=== PATIENT | female | born 1975 | race Caucasian/White ===

== ENCOUNTER 2016-07-19 17:07 | Emergency (ER) | payer OTHER ==
[2016-07-19] MEDS ORDERED: fentaNYL 100 MCG/2 ML INJ IVP ONE ×3 (17:34→18:41)
[2016-07-19] MEDS ORDERED: ONDANSETRON 4 MG/2 ML VIAL IVP ONE (17:34)
--- NOTE | 2016-07-19 17:47 | EDPHY ---
H & P Stated Complaint: chronic back issues with fall 2 weeks ago/now with WEAKNESS/ INCONTINENCE HPI/ROS: CHIEF COMPLAINT: Low back pain, weakness, fecal incontinence, abdominal pain HISTORY OF PRESENT ILLNESS: Patient complains of low back pain. This is related to a fall from 2 weeks ago. She slipped carrying her child, landing on her right hip and back. She has complained of progressive pain in the low back , radiating pain down both legs, saddle anesthesia, fecal incontinence. She reports that the pain is 10/10. She reports there has been some weakness in the right lower extremity today. She also reports that she has decreased sensation in the saddle. She reports having difficulty press on the gas pedal earlier today while driving. She has had no fever or chills. She has had no chest or upper back pain. Does associate this with some abdominal pelvic pain. No trauma directly to the abdomen. No hematuria. She reports a history of cauda equina nearly 3 years ago with surgical intervention at [facility] by Dr. Youssef. Her established neurosurgeon is Dr. Franco. She also has secondary complaint of abdominal pain. This is [id number]. Nonspecific in nature. No vomiting but some nausea. Worse with palpation and movement. Does not radiate. REVIEW OF SYSTEMS: Ten systems reviewed and are negative unless otherwise noted in the HPI PERTINENT MEDICAL HISTORY: Chronic low back pain, previous cauda equina EXAMINATION General Appearance: Alert, no distress Head: normocephalic, atraumatic Eyes: Pupils equal and round, no conjunctival pallor or injection. EOMs intact ENT, Mouth: Mucous membranes moist. Uvula midline. Neck: Normal inspection, supple, non-tender Respiratory: Lungs are clear to auscultation. No wheezing, rhonchi or crackles. Cardiovascular: Regular rate and rhythm. No murmur. Pulses intact distally. Gastrointestinal: Abdomen is soft and obese. There is mild tenderness throughout. No tympany. No rigidity. No CVA tenderness. Nonacute abdomen. Back: Moderate to severe lumbar tenderness throughout. There is no crepitus, step-off or deformity. No tenderness of the cervical spine. No tenderness of the thoracic spine. Range of motion unable to fully test due to pain. Neurological: A&O x4. GCS 15. Cranial nerves 2-12 grossly intact. Strength of the upper extremities is 5/5. Strength in the lower extremities is 4/5 in the right knee and ankle, and 5/5 in the left knee and ankle. Patellar reflex on the right is 2+. There is hyperreflexia of the left patellar reflexes 3+. No foot drop. Skin: Warm and dry. Multiple areas of excoriation throughout the arms and legs. Extremities: Mild tenderness of the right trochanter and hip. Range of motion of the right hip is intact but painful. There is no point tenderness of the remainder of the lower extremities. Range of motion is symmetric in the knees, hips and ankles. Psychiatric: Mood and affect normal DIFFERENTIAL DIAGNOSES: Including but not limited to acute cord compression, cauda equina, lumbar radiculopathy, disc herniation, muscular strain, low back sprain MDM: 5:35 p.m. Low back pain with trauma 2 weeks ago. Her pain is severe radiating down both legs, right greater than left. She reports weakness of the ankle on the right leg today. She reports fecal incontinence x2 today. She also complains of some abdominal pelvic pain. No urinary incontinence. Some saddle anesthesia reported. Examination does reveal mild hyperreflexia on the left knee as well as some weakness on the right ankle. MRI of the lumbar spine has been ordered without contrast 6:28 p.m. Laboratory studies are all within normal limits. X-ray of the hip is unremarkable for fracture or degenerative changes. MRI is pending. 8:00 p.m. Notified by radiologist Dr. Antonio Salinas. MRI of the lumbar spine does not reveal any acute findings. There are chronic changes as noted, and these are unchanged from January 2016. I have informed the patient of this. She informs me that her incontinence actually has been chronic since her previous cauda equina. She also feels that some of her sensory changes may be is well after she "thinks about it more." Her pain has improved but not resolved. She has ample pain medication at home from her painter helper sign. I do feel she is stable for discharge home. She is established with Dr. Franco neurosurgeon. She will follow up with him or his PA this week as she already has an appointment with them. She is comfortable with being discharged home at this time. She is discharged in stable condition. SUPERVISION: This patient was independently evaluated without direct examination by the attending physician. Case was discussed with attending physician. Source: Patient, Family Exam Limitations: No limitations - Personal History LMP (Females 10-55): Hysterectomy Current Tetanus/Diphtheria Vaccine: Yes Tetanus Vaccine Date: 2013 - Medical/Surgical History Hx Asthma: No Hx Chronic Respiratory Disease: No Hx Diabetes: No Hx Cardiac Disease: No Hx Renal Disease: No Hx Cirrhosis: No Hx Alcoholism: No Hx HIV/AIDS: No Hx Splenectomy or Spleen Trauma: No Other PMH: Cauda equina syndrome, hysterectomy, bowel bladder rectal prolapse repair, appy, tonsillectomy, , anxiety, migraines. - Social History Smoking Status: Current some day smoker Constitutional: Initial Vital Signs Temperature (C) 98.2 F 07/19/16 17:18 Heart Rate 97 07/19/16 17:18 Respiratory Rate 16 07/19/16 17:18 Blood Pressure 149/98 H 07/19/16 17:18 O2 Sat (%) 96 07/19/16 17:18 O2 Delivery Mode Room Air Allergies/Adverse Reactions: Sulfa (Sulfonamide Antibiotics) Allergy (Severe, Verified 07/19/16 17:17) Other-Enter Comments codeine Allergy (Intermediate, Verified 07/19/16 17:17) Rash morphine Allergy (Intermediate, Verified 07/19/16 17:17) Rash Home Medications: Medication Instructions Recorded Lexapro 02/14/16 Oxycodone HCl/Acetaminophen 02/14/16 Seroquel 02/14/16 methylPREDNISolone [Medrol Dose 1 each PO AD #1 ea 02/14/16 Philip] Valium 07/19/16 Medical Decision Making - Diagnostics Imaging Results: Imaging Impressions Hip X-Ray 07/19/16 17:47 Impression: 1. No evidence of right hip fracture or dislocation. 2. No significant degenerative changes. - Data Points Laboratory Results: Laboratory Results 07/19/16 17:45 07/19/16 17:45 07/19/16 07/19/16 07/19/16 18:45 17:45 17:45 WBC 5.95 10^3/uL 10^3/uL (3.80-9.50) RBC 5.09 10^6/uL 10^6/uL (4.18-5.33) Hgb 13.8 g/dL g/dL (12.6-16.3) Hct 43.1 % % (38.0-47.0) MCV 84.7 fL fL (81.5-99.8) MCH 27.1 pg L pg (27.9-34.1) MCHC 32.0 g/dL L g/dL (32.4-36.7) RDW 12.8 % % (11.5-15.2) Plt Count 198 10^3/uL 10^3/uL (150-400) MPV 9.2 fL fL (8.7-11.7) Neut % (Auto) 52.1 % % (39.3-74.2) Lymph % (Auto) 41.0 % % (15.0-45.0) [place] % (Auto) 6.7 % % (4.5-13.0) Eos % (Auto) 0.0 % L % (0.6-7.6) Baso % (Auto) 0.0 % L % (0.3-1.7) Nucleat RBC Rel Count 0.0 % % (0.0-0.2) Absolute Neuts (auto) 3.10 10^3/uL 10^3/uL (1.70-6.50) Absolute Lymphs (auto) 2.44 10^3/uL 10^3/uL (1.00-3.00) Absolute Monos (auto) 0.40 10^3/uL 10^3/uL (0.30-0.80) Absolute Eos (auto) 0.00 10^3/uL L 10^3/uL (0.03-0.40) Absolute Basos (auto) 0.00 10^3/uL L 10^3/uL (0.02-0.10) Absolute Nucleated RBC 0.00 10^3/uL 10^3/uL (0-0.01) Immature Gran % 0.2 % % (0.0-1.1) Immature Gran # 0.01 10^3/uL 10^3/uL (0.00-0.10) PT 12.3 SEC SEC (12.0-15.0) INR 0.92 (0.83-1.16) APTT 25.0 SEC SEC (23.0-38.0) Sodium Potassium Chloride Carbon Dioxide Anion Gap BUN Creatinine Estimated GFR Glucose Calcium Lipase Urine Color YELLOW Urine Appearance CLEAR Urine pH 5.0 (5.0-7.5) Ur Specific [place] 1.012 (1.002-1.030) Urine Protein NEGATIVE (NEGATIVE) Urine Ketones NEGATIVE (NEGATIVE) Urine Blood NEGATIVE (NEGATIVE) Urine Nitrate NEGATIVE (NEGATIVE) Urine Bilirubin NEGATIVE (NEGATIVE) Urine Urobilinogen NEGATIVE EU EU (0.2-1.0) Ur Leukocyte Esterase NEGATIVE (NEGATIVE) Ur Culture Indicated? NOT INDICATED (NI) Urine Glucose NEGATIVE (NEGATIVE) Urine Opiates Screen NON-NEGATIVE H (NEGATIVE) Urine Barbiturates NEGATIVE (NEGATIVE) Ur Phencyclidine Scrn NEGATIVE (NEGATIVE) Ur Amphetamine Screen NEGATIVE (NEGATIVE) U Benzodiazepines Scrn NON-NEGATIVE H (NEGATIVE) Urine Cocaine Screen NEGATIVE (NEGATIVE) U Marijuana (THC) Screen NEGATIVE (NEGATIVE) 07/19/16 17:45 WBC RBC Hgb Hct MCV MCH MCHC RDW Plt Count MPV Neut % (Auto) Lymph % (Auto) [place] % (Auto) Eos % (Auto) Baso % (Auto) Nucleat RBC Rel Count Absolute Neuts (auto) Absolute Lymphs (auto) Absolute Monos (auto) Absolute Eos (auto) Absolute Basos (auto) Absolute Nucleated RBC Immature Gran % Immature Gran # PT INR APTT Sodium 136 mEq/L mEq/L (134-144) Potassium 3.7 mEq/L mEq/L (3.5-5.2) Chloride 104 mEq/L mEq/L (97-110) Carbon Dioxide 23 mEq/l mEq/l (22-31) Anion Gap 9 mEq/L mEq/L (8-16) BUN 7 mg/dL mg/dL (7-23) Creatinine 0.6 mg/dL mg/dL (0.6-1.0) Estimated GFR > 60 Glucose 92 mg/dL mg/dL (70-100) Calcium 8.7 mg/dL mg/dL (8.5-10.4) Lipase 68.0 IU/L IU/L (23-300) Urine Color Urine Appearance Urine pH Ur Specific [place] Urine Protein Urine Ketones Urine Blood Urine Nitrate Urine Bilirubin Urine Urobilinogen Ur Leukocyte Esterase Ur Culture Indicated? Urine Glucose Urine Opiates Screen Urine Barbiturates Ur Phencyclidine Scrn Ur Amphetamine Screen U Benzodiazepines Scrn Urine Cocaine Screen U Marijuana (THC) Screen Medications Given: Discontinued Medications Diphenhydramine HCl (Benadryl) 25 mg PO EDNOW ONE Stop: 07/19/16 18:42 Last Admin: 04/20/17 18:55 Dose: 25 mg Fentanyl (Sublimaze) 100 mcg IVP EDNOW ONE Stop: 07/19/16 17:35 Last Admin: 07/19/16 18:03 Dose: 100 mcg Ondansetron HCl (Zofran) 4 mg IVP EDNOW ONE Stop: 07/19/16 17:35 Last Admin: 07/19/16 18:03 Dose: 4 mg Departure - Departure Disposition: Home, Routine, Self-Care Clinical Impression: Lumbar radicular pain Chronic pain Qualifiers: Chronic pain type: other chronic pain Qualified Code(s): G89.29 - Other chronic pain Condition: Good Instructions: Lumbar Radiculopathy (ED), Lower Back Exercises (ED) Additional Instructions: Continue your previous see prescribed pain medications as needed. Follow up with her established neurosurgeon Dr. Maharaj. Follow up with her established pain management physician. Return to ER for any change or worsening in her symptoms. Referrals: Isabel Garrido MD [Primary Care Provider] - As per Instructions Caleb Franco MD [Medical Doctor] - As per Instructions
[2016-07-19 17:55] LABS: % IMMATURE GRANULYOCYTES 0.2 % (0.0-1.1); ABSOLUTE IMMATURE GRANULOCYTES 0.01 10^3/uL (0.00-0.10); ADD DIFF? NO; ADD MORPH? NO; ADD SCAN? NO; ATYPICAL LYMPHOCYTE FLAG 30 (0-99); FRAGMENT RBC FLAG 0 (0-99); HEMATOCRIT 43.1 % (38.0-47.0); HEMOGLOBIN 13.8 g/dL (12.6-16.3); LEFT SHIFT FLG 0 (0-99); LIPEMIA HEMOLYSIS FLAG 80 (0-99); MEAN CELL HEMOGLOBIN 27.1 pg (27.9-34.1); MEAN CELL VOLUME 84.7 fL (81.5-99.8); MEAN PLATELET VOLUME 9.2 fL (8.7-11.7); PLATELET CLUMPS FLAG 10 (0-99); PLATELET COUNT 198 10^3/uL (150-400); RED BLOOD CELL COUNT 5.09 10^6/uL (4.18-5.33); RED CELL DISTRIBUTION WIDTH 12.8 % (11.5-15.2)
[2016-07-19 18:06] LABS: INR 0.92 (0.83-1.16); PROTIME(PATIENT) 12.3 SEC (12.0-15.0)
[2016-07-19 18:09] LABS: ANION GAP 9 mEq/L (8-16); CALCIUM 8.7 mg/dL (8.5-10.4); CARBON DIOXIDE 23 mEq/l (22-31); CHLORIDE 104 mEq/L (97-110); CREATININE 0.6 mg/dL (0.6-1.0); GLOMERULAR FILTRATION RATE > 60; GLUCOSE 92 mg/dL (70-100); POTASSIUM 3.7 mEq/L (3.5-5.2); SODIUM 136 mEq/L (134-144)
[2016-07-19] MEDS ORDERED: diphenhydrAMINE 25 MG CAP PO ONE (18:41)
[2016-07-19 19:03] LABS: COLOR YELLOW; LEUKOCYTE ESTERASE,URINE NEGATIVE (NEGATIVE); NITRITE,URINE NEGATIVE (NEGATIVE)
[2016-07-19 20:20] VITALS: BP 127/91; PULSE 104; RESP 14; TEMP 99.3; O2SAT 95
== END 2016-07-19 20:45 | disposition home or self-care (01) ==
DX: M54.5 Low back pain (principal); G89.29 Other chronic pain; F17.200 Nicotine dependence, unspecified, uncomplicated
CPT/HCPCS: 80305; 96374; J2405; J3010

== ENCOUNTER 2017-07-24 18:20 | Inpatient (IN) | payer OTHER ==
--- NOTE | 2017-07-24 19:01 | EDPHY ---
H & P Stated Complaint: HX CAUDA EQUINA/RE INJURED SATURDAY/NEW NEURO DEFICITS/ INCONTINENCE AND URINA Time Seen by Provider: 07/24/17 18:51 HPI/ROS: HPI: This is a 41-year-old female who presents with Chief Complaint: HX CAUDA EQUINA/RE INJURED SATURDAY/NEW NEURO DEFICITS/ INCONTINENCE AND URINE Location: Lower back Quality: Pain and weakness Duration: Today Signs and Symptoms: No bleeding, + radiation, + numbness, + weakness, no tingling, + fecal incontinence, + decreased range of motion, no swelling, + pain , no fever, + urinary retention Timing: Acute on chronic Severity: 10 out of 10 Context: Patient has a history of cauda equina syndrome, chronic back issues, presents with complaints of 1 day history of rapidly worsening lower back pain radiating down the front of both of her legs accompanied by numbness in the front of both of her thigh, fecal incontinence and urinary retention. Patient reports that she was unable to get out of the car to take her child to soccer practice this afternoon and fell to the ground. She reports no trauma directly to the abdomen. Denies hematuria. Describes the numbness radiating from her lower back down both of her thighs into the front of her thighs. Denies LOC/ head injury/neck pain/dizziness/nausea/vomiting/amnesia. Pain is worse with palpation and movement. She is established with Dr. Franco Neurosurgery. She reports that she has numerous pain medications that are not covering her pain and she believes that they should be and this concerns her. Patient believes that the pain is above her prior L4-L5 S1 surgery as well as below. Reports that her pain is improved with her knees flexed at 90 or her lying in a supine position. After further questioning patient reports that she has incontinence since her previous cauda equina syndrome episode. Modifying Factors: Regular pain medication regimen, no relief Comment: ROS: see HPI Constitutional: No fever, no chills, no weight loss Eyes: No blurred vision Respiratory: No shortness of breath, no cough Cardiovascular: No chest pain Gastrointestinal: No nausea, no vomiting no diarrhea Genitourinary: No dysuria Extremities: No myalgias Neurologic: No weakness, no numbness Skin: No rashes Hematologic: No bruising, no bleeding MEDICAL/SURGICAL/SOCIAL HISTORY: Medical history: Cut equina syndrome, anxiety, migraine Surgical history: Hysterectomy, bowel bladder rectal prolapse repair, appendectomy, tonsillectomy, Social history:. Has a child CONSTITUTIONAL: Obese, anxious, middle-aged white female, extremely tearful, awake and alert, moderate distress HEENT: Atraumatic and normocephalic. NECK: supple, no midline tenderness, flexion 45 degrees, extension 45 degrees, right and left lateral flexion 45 degrees. No meningismus. Cardiovascular: Normal S1/S2, regular rate, regular rhythm, without murmur rub or gallop. PULMONARY/CHEST: Symmetrical and nontender. no crepitus. Clear to auscultation bilaterally. Good air movement. No accessory muscle usage. ABDOMEN: Soft, nondistended, nontender, no ecchymosis. PELVIC: no pain with rocking; bilateral hips flexion 125 degrees, extension 30 degrees, with no pain internal rotation and no pain external rotation. BACK: Moderate midline tenderness, no paraspinous spasm, deep tendon reflexes 2 /2, unable to perform straight leg raise, No foot drop. Achilles reflexes are equal bilaterally. Diminished sensation noted from knees to hips bilaterally. RECTAL: Fair sphincter tone, light yellow stool in vault, no external hemorrhoids, no fissures, no palpable masses EXTREMITIES: 2/2 pulses, strength 5/5, DIP/PIP/MCP flexion/extension intact with good light touch sensation. no deformities, no clubbing, no cyanosis or edema. NEUROLOGICAL: no focal neuro deficits. GCS 15. Light touch sensation intact. SKIN: Warm and dry, no erythema. no rash. Good capillary refill. Source: Patient Exam Limitations: No limitations - Personal History LMP (Females 10-55): Hysterectomy Current Tetanus Diphtheria and Acellular Pertussis (TDAP): Yes Tetanus Vaccine Date: 2013 - Medical/Surgical History Hx Asthma: No Hx Chronic Respiratory Disease: No Hx Diabetes: No Hx Cardiac Disease: No Hx Renal Disease: No Hx Cirrhosis: No Hx Alcoholism: No Hx HIV/AIDS: No Hx Splenectomy or Spleen Trauma: No Other PMH: Cauda equina syndrome, hysterectomy, bowel bladder rectal prolapse repair, appy, tonsillectomy, , anxiety, migraines. - Social History Smoking Status: Current some day smoker Constitutional: Initial Vital Signs Temperature (C) 36.7 C 07/24/17 18:35 Heart Rate 96 07/24/17 18:35 Respiratory Rate 16 07/24/17 18:35 Blood Pressure 112/78 07/24/17 18:35 O2 Sat (%) 97 07/24/17 18:35 O2 Delivery Mode Room Air Allergies/Adverse Reactions: Sulfa (Sulfonamide Antibiotics) Allergy (Severe, Verified 07/24/17 18:34) Other-Enter Comments codeine Allergy (Intermediate, Verified 07/24/17 18:34) Rash morphine Allergy (Intermediate, Verified 07/24/17 18:34) Rash Home Medications: Medication Instructions Recorded Lexapro 02/14/16 Seroquel 02/14/16 Valium 07/19/16 Clindamycin 07/24/17 Dilaudid 07/24/17 morphINE 07/24/17 Medical Decision Making - Diagnostics Imaging Results: Imaging Impressions Lumbar Spine MRI 07/24/17 19:12 Impression: Prior L4-L5 and L5-S1 posterior decompression. Small subligamentous central disk protrusion at L4-L5, new. No dominant disk herniation or neural impingement identified. Results called to Shirin Aldridge PA-C, at 9:30 p.m. ED Course/Re-evaluation: MRI lumbar spine ordered, IV medications 0: IV Dilaudid 2 mg and IV Zofran ordered. 0: Notified by nursing that patient states that Zofran does not work for her and she is requesting Reglan with Benadryl. Notified by Radiology that there is prior L4-L5 S1 surgery. Small L4-L5 central disc herniation that is new. No signs of cauda equina syndrome. Foramen look good. 2139: Reassessed patient who reports that she still has pain. Weakness has improved slightly. Requesting more pain medications and IV fluids prior to decision being made for her to be admitted for intractable pain versus going home and outpatient therapy. Given 1 L normal saline, IV Dilaudid 2 mg, IV Valium 5 mg 9: Reassessed patient reports that pain has improved she still does not feel comfortable going home. She is not able to do hip bends and move her lower extremities with greater movement. ED decision to consult hospitalist for admission for intractable lower back pain secondary to disc herniation. Spoke with Dr. Bateman who kindly agrees to admit patient for pain control. Spoke with Dr. Fraire who kindly agrees to consult on the patient. This patient was seen under the supervision of my secondary supervising physician. I evaluated care for this patient independently. Discussed this patient with Dr. Mayo who did not see the patient. Differential Diagnosis: Back pain including but not limited to muscular pain, herniated disc, spine fracture, intra-abdominal causes and urinary tract infection. - Data Points Laboratory Results: Laboratory Results 07/24/17 20:11 07/24/17 20:11 07/24/17 07/24/17 20:11 20:11 WBC 8.38 10^3/uL 10^3/uL (3.80-9.50) RBC 5.30 10^6/uL 10^6/uL (4.18-5.33) Hgb 14.5 g/dL g/dL (12.6-16.3) Hct 43.5 % % (38.0-47.0) MCV 82.1 fL fL (81.5-99.8) MCH 27.4 pg L pg (27.9-34.1) MCHC 33.3 g/dL g/dL (32.4-36.7) RDW 12.9 % % (11.5-15.2) Plt Count 281 10^3/uL 10^3/uL (150-400) MPV 8.7 fL fL (8.7-11.7) Neut % (Auto) 63.1 % % (39.3-74.2) Lymph % (Auto) 31.9 % % (15.0-45.0) [place] % (Auto) 4.7 % % (4.5-13.0) Eos % (Auto) 0.0 % L % (0.6-7.6) Baso % (Auto) 0.1 % L % (0.3-1.7) Nucleat RBC Rel Count 0.0 % % (0.0-0.2) Absolute Neuts (auto) 5.29 10^3/uL 10^3/uL (1.70-6.50) Absolute Lymphs (auto) 2.67 10^3/uL 10^3/uL (1.00-3.00) Absolute Monos (auto) 0.39 10^3/uL 10^3/uL (0.30-0.80) Absolute Eos (auto) 0.00 10^3/uL L 10^3/uL (0.03-0.40) Absolute Basos (auto) 0.01 10^3/uL L 10^3/uL (0.02-0.10) Absolute Nucleated RBC 0.00 10^3/uL 10^3/uL (0-0.01) Immature Gran % 0.2 % % (0.0-1.1) Immature Gran # 0.02 10^3/uL 10^3/uL (0.00-0.10) Sodium 141 mEq/L mEq/L (135-145) Potassium 3.9 mEq/L mEq/L (3.5-5.2) Chloride 105 mEq/L mEq/L (97-110) Carbon Dioxide 22 mEq/l mEq/l (22-31) Anion Gap 14 mEq/L mEq/L (8-16) BUN 11 mg/dL mg/dL (7-23) Creatinine 0.7 mg/dL mg/dL (0.6-1.0) Estimated GFR > 60 Glucose 89 mg/dL mg/dL (70-100) Calcium 9.7 mg/dL mg/dL (8.5-10.4) Medications Given: Discontinued Medications Diazepam (Valium) 5 mg IVP EDNOW ONE Stop: 07/24/17 21:40 Last Admin: 07/24/17 21:49 Dose: 5 mg Diphenhydramine HCl (Benadryl Injection) 25 mg IVP EDNOW ONE Stop: 07/24/17 19:43 Last Admin: 07/24/17 21:39 Dose: Not Given Hydromorphone HCl (Dilaudid) 2 mg IVP EDNOW ONE Stop: 07/24/17 19:14 Last Admin: 07/24/17 20:21 Dose: 2 mg Hydromorphone HCl (Dilaudid) 2 mg IVP EDNOW ONE Stop: 07/24/17 21:40 Last Admin: 07/24/17 21:52 Dose: 2 mg Sodium Chloride (Ns) 1,000 mls @ 0 mls/hr IV EDNOW ONE; Wide Open PRN Reason: Protocol Stop: 07/24/17 21:40 Last Admin: 07/24/17 21:49 Dose: 1,000 mls Metoclopramide HCl (Reglan Injection) 10 mg IVP EDNOW ONE Stop: 07/24/17 19:43 Last Admin: 07/24/17 20:21 Dose: 10 mg Ondansetron HCl (Zofran) 4 mg IVP EDNOW ONE Stop: 07/24/17 19:14 Last Admin: 07/24/17 21:39 Dose: Not Given Departure - Departure Disposition: [facility] In[facility] Acute Clinical Impression: Herniation of intervertebral disc between L4 and L5, Acute exacerbation of chronic low back pain, Intractable neuropathic pain of lumbosacral origin Condition: Fair
[2017-07-24] MEDS ORDERED: ONDANSETRON 4 MG/2 ML VIAL IVP ONE (19:13)
[2017-07-24] MEDS ORDERED: HYDROmorphONE/DILAUDID 2 MG/ML INJ IVP ONE ×2 (19:13→21:39)
[2017-07-24] MEDS ORDERED: METOCLOPRAMIDE 10 MG/2 ML VIAL ONE (19:41)
[2017-07-24] MEDS ORDERED: METOCLOPRAMIDE 10 MG/2 ML VIAL IVP ONE (19:42)
[2017-07-24 20:18] LABS: PLATELET COUNT 281 10^3/uL (150-400)
[2017-07-24] MEDS ORDERED: NS 1,000 ML IV ONE (21:39)
[2017-07-24] MEDS ORDERED: DIAZEPAM 5 MG/ML 1 ML SYR IVP ONE (21:39)
[2017-07-24] MEDS ORDERED: ONDANSETRON 4 MG/2 ML VIAL IVP PRN (23:25)
[2017-07-24] MEDS ORDERED: ACETAMINOPHEN 325 MG TAB PO PRN (23:25)
[2017-07-25] MEDS: HYDROmorphONE/DILAUDID 2 MG TAB PO PRN ×3 (01:24→07:59)
[2017-07-25] MEDS: ONDANSETRON DISINTEGRATING 4 MG TAB PO PRN (01:25)
[2017-07-25] MEDS: HYDROmorphone HCL/NS 0.5 MG/ML SYR IVP PRN ×8 (02:52→23:08)
--- NOTE | 2017-07-25 03:50 | PDGENHP ---
History and Physical - Chief Complaint Back pain - History of Present Illness 41 yo F w/ hx of chronic back pain and previous back surgery presents with pain after a fall. Patient fell on Saturday and has severe back pain since. She describes the pain as mostly left-sided with radiation down the left leg. She also complains of left foot weakness, numbness, as well as urinary retention and loss of bowel continence on at least 1 occasion. MRI in the ED revealed new , small L4-5 disk protrusion as well as previous, stable abnormalities. Patient' s pain was not able to be controlled in ED so she is being admitted for pain control. History Information - Allergies/Home Medication List Allergies/Adverse Reactions: Sulfa (Sulfonamide Antibiotics) Allergy (Severe, Verified 07/24/17 18:34) Other-Enter Comments codeine Allergy (Intermediate, Verified 07/24/17 18:34) Rash morphine Allergy (Intermediate, Verified 07/24/17 18:34) Rash Home Medications: Lexapro 02/14/16 [Last Taken Unknown] Seroquel 02/14/16 [Last Taken Unknown] Valium 07/19/16 [Last Taken Unknown] Clindamycin 07/24/17 [Last Taken Unknown] Dilaudid 07/24/17 [Last Taken Unknown] morphINE 07/24/17 [Last Taken Unknown] I have personally reviewed and updated: family history, medical history - Past Medical History arthritis Additional medical history: Chronic pain - Surgical History Reports: spinal surgery - Family History Positive for: cancer - Social History Smoking Status: Current some day smoker Review of Systems Review of Systems: ROS: 10pt was reviewed & negative except for what was stated in HPI & below Physical Exam Physical Exam: Temp Pulse Resp BP Pulse Ox 37.1 C 86 19 114/71 95 07/25/17 01:18 07/25/17 01:18 07/25/17 01:18 07/25/17 01:18 07/25/17 01:18 Constitutional: appears nourished, uncomfortable Eyes: PERRL, EOMI Ears, Nose, Mouth, Throat: moist mucous membranes, no oral mucosal ulcers Cardiovascular: regular rate and rhythym, no murmur, rub, or gallop Respiratory: no respiratory distress, no rales or rhonchi Gastrointestinal: normoactive bowel sounds, soft, non-tender abdomen Skin: warm, normal color Musculoskeletal: other (Plantarflexion 4/5 left foot) Neurologic: AAOx3, CN II-XII Intact, other (L foot plantarflexion 4/5, reports mild numbness) Psychiatric: interacting appropriately, anxious Lab Data & Imaging Review 07/24/17 20:11 07/24/17 20:11 WBC 8.38 10^3/uL (3.80-9.50) 07/24/17 20:11 RBC 5.30 10^6/uL (4.18-5.33) 07/24/17 20:11 Hgb 14.5 g/dL (12.6-16.3) 07/24/17 20:11 Hct 43.5 % (38.0-47.0) 07/24/17 20:11 MCV 82.1 fL (81.5-99.8) 07/24/17 20:11 MCH 27.4 pg (27.9-34.1) L 07/24/17 20:11 MCHC 33.3 g/dL (32.4-36.7) 07/24/17 20:11 RDW 12.9 % (11.5-15.2) 07/24/17 20:11 Plt Count 281 10^3/uL (150-400) 07/24/17 20:11 MPV 8.7 fL (8.7-11.7) 07/24/17 20:11 Neut % (Auto) 63.1 % (39.3-74.2) 07/24/17 20:11 Lymph % (Auto) 31.9 % (15.0-45.0) 07/24/17 20:11 Walton % (Auto) 4.7 % (4.5-13.0) 07/24/17 20:11 Eos % (Auto) 0.0 % (0.6-7.6) L 07/24/17 20:11 Baso % (Auto) 0.1 % (0.3-1.7) L 07/24/17 20:11 Nucleat RBC Rel Count 0.0 % (0.0-0.2) 07/24/17 20:11 Absolute Neuts (auto) 5.29 10^3/uL (1.70-6.50) 07/24/17 20:11 Absolute Lymphs (auto) 2.67 10^3/uL (1.00-3.00) 07/24/17 20:11 Absolute Monos (auto) 0.39 10^3/uL (0.30-0.80) 07/24/17 20:11 Absolute Eos (auto) 0.00 10^3/uL (0.03-0.40) L 07/24/17 20:11 Absolute Basos (auto) 0.01 10^3/uL (0.02-0.10) L 07/24/17 20:11 Absolute Nucleated RBC 0.00 10^3/uL (0-0.01) 07/24/17 20:11 Immature Gran % 0.2 % (0.0-1.1) 07/24/17 20:11 Immature Gran # 0.02 10^3/uL (0.00-0.10) 07/24/17 20:11 Sodium 141 mEq/L (135-145) 07/24/17 20:11 Potassium 3.9 mEq/L (3.5-5.2) 07/24/17 20:11 Chloride 105 mEq/L (97-110) 07/24/17 20:11 Carbon Dioxide 22 mEq/l (22-31) 07/24/17 20:11 Anion Gap 14 mEq/L (8-16) 07/24/17 20:11 BUN 11 mg/dL (7-23) 07/24/17 20:11 Creatinine 0.7 mg/dL (0.6-1.0) 07/24/17 20:11 Estimated GFR > 60 07/24/17 20:11 Glucose 89 mg/dL (70-100) 07/24/17 20:11 Calcium 9.7 mg/dL (8.5-10.4) 07/24/17 20:11 Imaging Review: Imaging Impressions Lumbar Spine MRI 07/24/17 19:12 Impression: Prior L4-L5 and L5-S1 posterior decompression. Small subligamentous central disk protrusion at L4-L5, new. No dominant disk herniation or neural impingement identified. Results called to Shirin Aldridge PA-C, at 9:30 p.m. Assessment & Plan Assessment: 41 yo F w/ chronic lower back pain presents with pain crisis after a fall. Plan: 1. Acute on chronic back pain - Exacerbated by a fall 2 days prior to admission ; MRI reveals new, small subligamentous central disk protrusion at L4-L5. Pain did not respond to conservative measures and usual pain regimen at home so she is being admitted for pain control. - Dilaudid PO/IV for pain control + Valium PRN for muscle spasms - Neurosurgery service consulted, appreciate assistance 2. Chronic pain - Patient takes MS Contin 15 mg BID as well as Dilaudid 4 mg PO QID at home. Pain is mostly in her lower back where she has had previous spinal surgery. Diet - Regular Code - Full Ppx - SCDs Dispo - Admit under observation status
[2017-07-25] MEDS ORDERED: NS 500 ML IV ONE (04:18)
[2017-07-25] MEDS ORDERED: PNEUMOCOCCAL 0.5ML VACCINE VIAL IM ONE (08:08)
--- NOTE | 2017-07-25 08:19 | GCON ---
[f rep st] CONSULTATION CHIEF COMPLAINT: Low back pain with bilateral lower extremity pain, left greater than right, that st arted this last Saturday. HISTORY OF PRESENT ILLNESS: The patient is a 41-year-old female with history of chronic back pain th at she is under pain management and gets injections with Dr. Lopez. She has had previous back surger ies in the past with Dr. Youssef, and had previous laminectomy for cauda equina. Her history is that s he fell on Saturday of this week, complained of some severe back pain since then. She describes pain m ostly on the left side but does have some right-sided symptoms that she describes in the lower back t hat radiates to the anterior thighs bilaterally. She does not have any symptoms that radiate below t he knees. She complains of some left foot weakness and numbness as well as some urinary retention an d loss of bowel control. She had this at least on 1 occasion. She has not been incontinent since he r admission here to the hospital. She had a MRI in the emergency department after she was referred t here that showed a small L4-5 disk protrusion, but otherwise stable. There are postoperative changes noted. Pain was not able to be controlled in the ED, so she was admitted for pain control. She was admitted to the internal medicine service and we were consulted. She denies any current bowel or bl adder issues. She denies any numbness in her groin. No saddle numbness. PAST MEDICAL HISTORY: Chronic pain. PAST SURGICAL HISTORY: 1. Lumbar decompression with Dr. Youssef 3-1/2 years ago. 2. Bowel and bladder surgery. 3. . 4. Oophorectomy and hysterectomy. 5. Tonsils and adenoids. 6. Appendectomy. MEDICATIONS: Lexapro, Seroquel, Valium, clindamycin, Dilaudid, and morphine. ALLERGIES: To sulfa, codeine, and morphine derivative, although patient is on morphine at home. FAMILY HISTORY: Reviewed and noncontributory. SOCIAL HISTORY: The patient is . Lives in [facility]. Does have children. She does no t work. REVIEW OF SYSTEMS: Complete 10-point review of system as noted above and otherwise negative. The pa tient denies any headache. No diplopia. No blurred vision. No loss of visual field. No hearing lo ss, tinnitus or vertigo. PULMONARY: No cough, sputum production, hemoptysis, dyspnea or pleuritic c hest pain. CARDIAC: No chest pain or pressure. No palpitations. GI: No weight loss or gain. No nausea, vomiting, or diarrhea. : No dysuria, hematuria, nocturia, urgency or frequency. NEURO: Patient denies any dizziness, syncope, seizures, vertigo. Does have some weakness in the left foot. PSYCHIATRIC: No suicidality, homicidality. PHYSICAL EXAM: GENERAL: This is an awake, alert, oriented female in no acute distress. VITAL SIGNS : Most recent, blood pressure 97/60 with a MAP of 72, 61 heart rate, 17 respirations, 96% on room ai r, temperature 36.8. HEENT: Head is normocephalic, atraumatic. Pupils are equal, round, reactive t o light. EOMI is intact. Full visual alvares by confrontation. Ears are patent. Nose is patent. N LEO: Soft and supple. No midline tenderness. Full range of motion in flexion, extension, lateral b ending, rotation. RESPIRATORY and CARDIAC: Deferred. ABDOMEN: Soft, nontender. No peritoneal sig ns. and RECTAL: Deferred. NEURO: Patient is awake, alert, oriented to name, place, location, date, time, and situation. Memor y is intact to immediate, past, and current events. Speech: No aphasia, dysarthria, dysphonia. Or Scrub Tech nial nerves 2-12 grossly intact. Motor: Patient has 5/5 strength in all muscle groups of bilateral upper and lower extremities to include deltoids, biceps, triceps, brachioradialis, wrist flexion, ext ensors, caramel candy maker intrinsic fingers, iliopsoas, quadriceps, hamstring, plantar flexion, dorsiflexion, EHL testing with the exception of left EHL at 4-/5, left dorsiflexion at 4/5. Sensation is grossly intac t to light touch throughout all dermatome distributions upper extremities. Negative straight leg lund se. Negative RAUL test. Reflexes of the biceps, triceps, brachioradialis, knee jerk and ankle jerk 2+/4 except for iliopsoas and quad at 1+/4. Rodriguez's is negative bilaterally. She has 3-4 beats o f clonus bilaterally. DIAGNOSTIC STUDIES: Laboratory tests 07/24/2017, shows a white count of 8.38 with an H and H 14.5 an d 43.5, platelet count of 281. Chemistries 07/24/2017: Sodium 141, potassium 3.9, chloride 105, CO2 22, BUN 11, creatinine 0.7, and glucose of 89. IMAGING: MRI of the lumbar spine obtained 07/24/2017, at 1912 shows prior L4-5 and L5-S1 posterior d ecompression. There is a subligamentous ligamentous central disk protrusion at L4-5. There is no do minant disk herniation or neural impingement identified. Pending MRI of cervical spine. Pending MRI of thoracic spine. ASSESSMENT: 1. Back pain exacerbation with bilateral lower extremity symptoms, left greater than right in anteri or thigh. 2. History of L4-5, L5-S1 decompression with Dr. Youssef 3-1/2 years ago. 3. Four beats of clonus to bilateral lower extremity with history of cervicalgia. PLAN AND DISCUSSION: Gabriella is a 41-year-old female who is under chronic pain management with Dr. Lopez, who presented to the emergency department with worsening lower back pain since Saturday of this week when she was changing some clothes. She describes symptoms in her lower back as well as bilate ral lower extremities with left greater than right. She describes symptoms down mainly in the anteri or thigh that does not go below the knee on the left side. She does have 3-4 beats of clonus bilater ally. I recommended and ordered an MRI of the cervical and thoracic spine. She was admitted to [facility] and they will manage her pain control needs at this point. We spoke with her about med ication management as well as the possibility of any injections should the need arise based on her im aging. All questions and concerns were answered. Patient understands and agrees. /[id number]/MODL
--- NOTE | 2017-07-25 10:14 | WOCRNPDOC ---
WOCRN Advanced Assessment Note - Skin Integrity Problem, Advanced Assess Buttock Dressing Type: Open to Air Wound Bed Constitution: Red/[place] - Non Granular Tissue Site Measurement - Head-to-Toe Length X Width X Depth (cm): 1.6x1.2x0.1 (x3 the other two are both smaller) Skin Integrity Problem Comment: Small partial thickness abrasion/excoriations in various stages of healing with scarred areas nearby from similar wounds Patient scratches/picks at the areas. Treat with silvasorb and Allevyn. Wound care will sign off. Face Dressing Type: Open to Air Wound Bed Constitution: Red/[place] - Non Granular Tissue Site Measurement - Head-to-Toe Length X Width X Depth (cm): 0.5x0.5x0.1 x3 Skin Integrity Problem Comment: Small partial thickness abrasion/excoriations in various stages of healing. Patient scratches/picks at the areas per her report.
[2017-07-25] MEDS ORDERED: ACET/CAFFEINE/BUTA FIORICET 1 EACH TAB PO PRN (11:24)
[2017-07-25] MEDS ORDERED: HYDROmorphONE/DILAUDID 4 MG TAB PO PRN (11:24)
[2017-07-25] MEDS: morphINE SR 15 MG TAB PO SCH ×2 (12:40→20:08)
[2017-07-25] MEDS: HYDROmorphONE/DILAUDID 4 MG TAB PO PRN (12:40)
[2017-07-25] MEDS: PANTOPRAZOLE SODIUM 40 MG TAB PO SCH (13:00)
[2017-07-25] MEDS: DIAZEPAM 5 MG TAB PO SCH (14:13)
[2017-07-25] MEDS: CLINDAMYCIN 150 MG CAP PO SCH ×2 (15:25→18:19)
--- NOTE | 2017-07-25 16:20 | ASMTCMCOM ---
CM Note CM Note Notes: Pt admitted for back pain, she has a history of back issues but fell 2 days ago and now has new injuries. She lives at home with her . PT/OT ordered, ELISEO w/f. DC Plan: TBD Date Signed: 07/25/2017 04:20 PM Electronically Signed By:Flower Mixon RN
[2017-07-25] MEDS: NS 1,000 ML IV SCH ×2 (18:19→23:15)
--- NOTE | 2017-07-25 18:24 | HOSPPROG ---
Hospitalist Progress Note Assessment/Plan: * Acute on chronic back pain, recent fall -MRI L-spine okay -clonus noted by neurosurgery on exam - MRI C/T spine ordered -IV dilaudid until MRI results known * Continuous narcotic dependency -home dose MS Contin * Hypotension - ? due to narcotics -IVF bolus * s/p laminectomy, previous cauda equina Subjective: c/o ongoing severe pain Objective: Vital Signs Temp Pulse Resp BP Pulse Ox 37.1 C 71 12 88/64 L 95 07/25/17 15:51 07/25/17 16:24 07/25/17 15:51 07/25/17 16:32 07/25/17 15:51 07/24/17 07/25/17 07/26/17 05:59 05:59 05:59 Intake Total 2126 374 Output Total 300 400 Balance 1826 -26 Laboratory Tests 07/24/17 07/24/17 20:11 20:11 WBC 8.38 Hct 43.5 Plt Count 281 Sodium 141 Potassium 3.9 Chloride 105 Carbon Dioxide 22 Anion Gap 14 BUN 11 Creatinine 0.7 Estimated GFR > 60 Glucose 89 Calcium 9.7 MRI Lspine - negative - Physical Exam Constitutional: no apparent distress, appears nourished, not in pain Cardiovascular: regular rate and rhythym, no murmur, rub, or gallop Respiratory: no respiratory distress, no rales or rhonchi, clear to auscultation Gastrointestinal: normoactive bowel sounds, soft, non-tender abdomen, no palpable masses Skin: no rashes or abrasions, no fluctuance, no induration Neurologic: AAOx3, sensation intact bilaterally Psychiatric: interacting appropriately, not anxious, not encephalopathic, thought process linear ICD10 Worksheet Patient Problems: Problems Problem Status Onset Acute exacerbation of chronic low back pain Acute Herniation of intervertebral disc between L4 and L5 Acute Intractable neuropathic pain of lumbosacral origin Acute
[2017-07-25] MEDS: ESCITALOPRAM OXALATE 10 MG TAB PO SCH (20:08)
[2017-07-25] MEDS: TOPIRAMATE 100 MG TAB PO SCH (20:08)
[2017-07-25] MEDS: QUEtiapine FUMARATE 100 MG TAB PO SCH (20:08)
[2017-07-25] MEDS ORDERED: NON-FORMULARY NEW DRUG (Escitalopram Oxalate [Lexapro] 20 MG) PO SCH (21:00)
[2017-07-25] MEDS ORDERED: ZOLPIDEM TARTRATE 5 MG TAB PO ONE (22:00)
[2017-07-25] MEDS: CLINDAMYCIN 1% 60 ML LOTION TP SCH (23:41)
[2017-07-26] MEDS: HYDROmorphone HCL/NS 0.5 MG/ML SYR IVP PRN ×3 (01:37→07:55)
[2017-07-26] MEDS: CLINDAMYCIN 150 MG CAP PO SCH ×4 (01:49→17:50)
[2017-07-26] MEDS: HYDROmorphONE/DILAUDID 4 MG TAB PO PRN ×5 (03:51→21:54)
[2017-07-26 05:29] LABS: PLATELET COUNT 229 10^3/uL (150-400)
[2017-07-26] MEDS: DIAZEPAM 5 MG TAB PO PRN (06:15)
--- NOTE | 2017-07-26 08:43 | SOAPPROG ---
TINGAP Progress Note Assessment/Plan: Assessment: 41 yo female with history or chronic pain under pain management care as outpatient recent fall with increased LBP Left DF/PF/EHL weakness today that is effort dependant and limited by back pain No evidence of spinal cord compression in C or T spine to explain incontinence or clonus. Plan: We will sign off per Dr. Fraire. Recommend Neurology consult to discuss cause of bilateral clonus with patient as she is concerned about this. I explained that there is no finding in her C or Tspine MRI to explain it. Recommend outpatient follow up with her pain management MD and to follow up with Dr. Franco in 1-2 weeks. 07/26/17 08:38 07/26/17 08:49 Subjective: lying in bed, complaining of back pain and neck pain. Objective: Vital Signs Temp Pulse Resp BP Pulse Ox 37 C 80 14 98/70 L 96 07/26/17 07:43 07/26/17 07:43 07/26/17 07:43 07/26/17 07:43 07/26/17 07:43 Laboratory Results 07/26/17 05:10 07/26/17 05:10 07/25/17 07/26/17 07/27/17 05:59 05:59 05:59 Intake Total 2126 2510 Output Total 300 600 Balance 1826 1910 Neuro: left DF/PF/EHL 4/5 Effort dependant exam due to back pain. Subjective decreased sensation in left foot (plantar surface >dorsal surface) Right LE 5/5 throughout subjective decreased sensation in groin/genital region (present prior to admission) Imaging: MRI C and T spine reviewed and do not show any compression of the cord to explain her clonus or b/b issues. MRI Lspine shows central L4/5 HNP without nerve compression ICD10 Worksheet Patient Problems: Problems Problem Status Onset Acute exacerbation of chronic low back pain Acute Herniation of intervertebral disc between L4 and L5 Acute Intractable neuropathic pain of lumbosacral origin Acute
[2017-07-26] MEDS ORDERED: NON-FORMULARY NEW DRUG (Omeprazole [Omeprazole] 20 MG) PO SCH (09:00)
[2017-07-26] MEDS: PANTOPRAZOLE SODIUM 40 MG TAB PO SCH (09:27)
[2017-07-26] MEDS: morphINE SR 15 MG TAB PO SCH ×2 (09:27→20:36)
[2017-07-26] MEDS: DIAZEPAM 5 MG TAB PO SCH ×2 (09:28→13:24)
[2017-07-26] MEDS: CLINDAMYCIN 1% 60 ML LOTION TP SCH ×2 (09:36→20:48)
--- NOTE | 2017-07-26 10:00 | PDMN ---
Medical Necessity Medical necessity: Patient meets inpatient criteria per physician note and MCG M -63 Back Pain (intractable lumbar pain, clonus noted by NSR, hypotension with syst B/P 70's-80's, poss d/t narcotics; LOS will be > 2 midnights for IV bolus for hypotension, ongoing IV Dilaudid for intractable back pain while MRI's are pending.)
[2017-07-26] MEDS: ONDANSETRON DISINTEGRATING 4 MG TAB PO PRN (12:00)
[2017-07-26] MEDS ORDERED: KETOROLAC 30 MG/1 ML SDV IVP PRN (12:05)
[2017-07-26] MEDS ORDERED: KETAMINE 200 MG/20 ML VIAL IVP ONE ×4 (12:53→20:15)
[2017-07-26] MEDS: METHOCARBAMOL 500 MG TAB PO SCH ×2 (12:54→16:31)
--- NOTE | 2017-07-26 14:57 | SOAPPROG ---
SOAP Progress Note Assessment/Plan: Assessment:Local Qi and Blood stagnation lumbar area. BL and GB channels. Plan:Regulate Qi and Blood, relieve pain Treat daily while in hospital, follow up after discharge with office visits if she chooses, plan and frequency to be determined. Treatment: LI4, St 36, Waqar 3, GB 34 Left. Ear dailey men, Left: Point zero, sympathetic tx2: patient on R side, treat left: L4, L5 rudolph, Nhung, Du 3, BL 25, 26,57, GB 34 07/26/17 14:57 Subjective: Met with patient for acupuncture consult. She said she was nervous, mainly about acupuncture. Chief complaint is pain in her low back and pain and numbness in her legs, worse on the left side. She has chronic pain, but exacerbated a few days ago while getting dressed, when she slipped while putting on her pants and "went down hard." Pian has been severe since then. Objective: Vital Signs Temp Pulse Resp BP Pulse Ox 36.7 C 83 18 106/70 96 07/26/17 11:16 07/26/17 11:16 07/26/17 11:16 07/26/17 11:16 07/26/17 11:16 Laboratory Results 07/26/17 05:10 07/26/17 05:10 07/25/17 07/26/17 07/27/17 05:59 05:59 05:59 Intake Total 2126 2510 Output Total 300 600 Balance 1826 1910 Patient appears somewhat nervous, but able to communicate clearly her symptoms and ask questions about the treatment, and treatment plan. Low crusher tender on palpation. ICD10 Worksheet Patient Problems: Problems Problem Status Onset Acute exacerbation of chronic low back pain Acute Herniation of intervertebral disc between L4 and L5 Acute Intractable neuropathic pain of lumbosacral origin Acute
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
--- NOTE | 2017-07-26 17:09 | NEUROPROG ---
Assessment: HOSPITAL NEUROLOGY CONSULT REQUESTING: Crystal Sheets MD REASON: clonus HPI: 41 year old woman with a history of chronic back pain on narcotics presented to our facility 07/24 due to acute on chronic back pain. Patient apparently fell on 07/22 and since that time has experienced intractable left-sided low back pain radiating down the leg. She has endorsed weakness and numbness in the leg and difficulty walking. She also states she was having difficulty with voiding function. She has been evaluated by neurosurgery and a few beats of clonus was noted with forced dorsiflexion, which prompted neurologic consultation. She's had MRI of the C/T/L spine without any significant findings. On my interview, she is resting comfortably in bed but states her back pain is excruciating. ROS: As per the HPI, otherwise a complete 12 point ROS was performed and is negative ALLERGIES AND MEDS: As recorded in the EMR - reviewed and reconciled PFSH: As per the intake H&P by Dr. Bateman from 07/24 EXAM: VS reviewed in EMR GEN: WDWN laying comfortably in NAD HEENT: NCAT, sclera anicteric, conjunctiva not injected, MMM, oropharynx clear, no scalp tenderness NECK: supple, nontender, no meningismus CV: RRR s1 s2 wo m/r/c/g. Carotid pulses 2+ wo bruit EXT: endorses pain with SLR on left NEURO: MS: awake, alert, oriented to all spheres. Speech nondysarthric. No language disturbance. Follows commands. Attends to both sides. Recent/remote memory grossly intact. Mood euthymic, odd affect. Adequate fund of knowledge. CN: pupils 4mm round and reactive. Intolerant of fundoscopy. VFF. Primary gaze centered. Full ocular motility. Facial sensation preserved. Face symmetric. Hearing grossly intact to finger rub. Palatoglossal movements intact. Shoulder shrug and head turn strong. MOTOR: normal bulk/tone. No adventitial movements. Submax effort and giveway weakness in all groups of the LLE and LUE. SENSORY: subjective diminished PP, temp, LT in the entire LLE. Denies feeling vib in LLE. No JPS in all joints of the LLE. No extinction. COORD: no ataxia FN. Won't do HS due to pain. Stefany preserved. REFLEX: plantars down. No clonus. DTRS 2/4. GAIT: deferred for safety DATA REVIEW: Labs reviewed in EMR PERSONALLY INTERPRETED RESULTS AND DATA: MRI C/T/L spine wo - as per HPI IMPRESSION AND RECOMMENDATIONS: // ACUTE ON CHRONIC BACK PAIN // FUNCTIONAL LEFT SIDED WEAKNESS // NO CLONUS ON EXAM Consultation requested for clonus about the ankles, which I don't see on my exam. Less than 5 beats of symmetric clonus can be a physiologic finding. No pathology on spine imaging. No other deficits indicating a brain issue. Left- sided weakness is functional, and pattern of endorsed sensory loss in nonorganic. No further neurologic workup indicated. Will sign off. Recall PRN. Objective: Vital Signs Temp Pulse Resp BP Pulse Ox 36.8 C 65 10 L 95/55 L 98 07/26/17 16:00 07/26/17 16:00 07/26/17 16:00 07/26/17 16:00 07/26/17 16:00 Laboratory Results 07/26/17 05:10 07/26/17 05:10 07/25/17 07/26/17 07/27/17 05:59 05:59 05:59 Intake Total 2126 2510 Output Total 300 600 Balance 1826 1910 Allergies/Adverse Reactions: Sulfa (Sulfonamide Antibiotics) Allergy (Severe, Verified 07/24/17 18:34) Other-Enter Comments codeine Allergy (Intermediate, Verified 07/24/17 18:34) Rash morphine Allergy (Intermediate, Verified 07/24/17 18:34) Rash
[2017-07-26] MEDS ORDERED: METHOCARBAMOL 500 MG TAB PO PRN (17:13)
--- NOTE | 2017-07-26 17:22 | HOSPPROG ---
Hospitalist Progress Note Assessment/Plan: * Acute on chronic back pain, recent fall -MRI C/T/L spine negative - suspect muscle strain -maximize non-narcotic therapy -IV ketamine - has worked well for her in past * Clonus -consult neuro * Continuous narcotic dependency -home dose MS Contin * Hypotension - ? due to narcotics -s/p IVF bolus * s/p laminectomy, previous cauda equina Subjective: Severe pain Objective: Vital Signs Temp Pulse Resp BP Pulse Ox 36.8 C 65 10 L 95/55 L 98 07/26/17 16:00 07/26/17 16:00 07/26/17 16:00 07/26/17 16:00 07/26/17 16:00 Laboratory Results 07/26/17 05:10 07/26/17 05:10 07/25/17 07/26/17 07/27/17 05:59 05:59 05:59 Intake Total 2126 2510 Output Total 300 600 Balance 1826 1910 d/w Neurosurgery PA - really not THOMAS options at this time per Dr. Fraire MRI Tspine and Cspine - normal - Time Spent With Patient Time Spent with Patient: greater than 35 minutes Time Spent with Patient: Greater than 35 minutes spent on this patients care, greater than 50% of time spent counseling, educating, and coordinating care regarding the above mentioned plan. - Physical Exam Constitutional: no apparent distress, appears nourished, not in pain Cardiovascular: regular rate and rhythym, no murmur, rub, or gallop Respiratory: no respiratory distress, no rales or rhonchi, clear to auscultation Gastrointestinal: normoactive bowel sounds, soft, non-tender abdomen, no palpable masses Skin: no rashes or abrasions, no fluctuance, no induration Neurologic: AAOx3, sensation intact bilaterally Psychiatric: interacting appropriately, not encephalopathic, thought process linear, anxious ICD10 Worksheet Patient Problems: Problems Problem Status Onset Acute exacerbation of chronic low back pain Acute Herniation of intervertebral disc between L4 and L5 Acute Intractable neuropathic pain of lumbosacral origin Acute
[2017-07-26] MEDS: ESCITALOPRAM OXALATE 10 MG TAB PO SCH (20:36)
[2017-07-26] MEDS: QUEtiapine FUMARATE 100 MG TAB PO SCH (20:47)
[2017-07-26] MEDS: TOPIRAMATE 100 MG TAB PO SCH (20:47)
[2017-07-26] MEDS ORDERED: ZOLPIDEM TARTRATE 5 MG TAB PO ONE (21:00)
[2017-07-27] MEDS: CLINDAMYCIN 150 MG CAP PO SCH ×3 (00:05→11:15)
[2017-07-27] MEDS: DIAZEPAM 5 MG TAB PO PRN (00:05)
[2017-07-27] MEDS: HYDROmorphONE/DILAUDID 4 MG TAB PO PRN ×2 (05:47→11:15)
[2017-07-27] MEDS: PANTOPRAZOLE SODIUM 40 MG TAB PO SCH (09:03)
[2017-07-27] MEDS: CLINDAMYCIN 1% 60 ML LOTION TP SCH (09:03)
[2017-07-27] MEDS: DIAZEPAM 5 MG TAB PO SCH (09:03)
[2017-07-27] MEDS: morphINE SR 15 MG TAB PO SCH (09:03)
[2017-07-27] MEDS ORDERED: PNEUMOCOCCAL 0.5ML VACCINE VIAL IM ONE (10:15)
[2017-07-27 11:23] VITALS: BP 98/48
--- NOTE | 2017-07-27 13:55 | PDIAF ---
- Diagnosis Diagnosis: low back pain Code Status: Full Code - Medication Management Discharge Medications: Medications to Continue on Transfer Escitalopram Oxalate [Lexapro] 20 mg PO HS 02/14/16 [Last Taken 07/23/17] QUEtiapine FUMARATE [Seroquel 100 mg (*)] 100 mg PO HS 02/14/16 [Last Taken ] Diazepam [Valium 5 MG (*)] 5 mg PO BID@09,14 07/19/16 [Last Taken 07/24/17 14:00 ] Clindamycin 150 mg PO Q6HRS 07/24/17 [Last Taken 07/24/17] HYDROmorphone HCL [Dilaudid 4 mg (*)] 4 mg PO Q6HRS 07/24/17 [Last Taken ] morphINE SR [Ms Contin/Oramorph 15 mg (*)] 15 mg PO BID 07/24/17 [Last Taken 09:00] Acet/Caffeine/Buta Fioricet [Fioricet (*)] 1 each PO DAILY PRN 07/25/17 [Last Taken Unknown] Acetaminophen [Tylenol 325mg (*)] 325 mg PO DAILY PRN 07/25/17 [Last Taken Unknown] Clindamycin 1% [Cleocin 1% Lotion] 1 quinn TP BID 07/25/17 [Last Taken 07/24/17 21 :00] Ibuprofen [Motrin (*)] 200 mg PO DAILY PRN 07/25/17 [Last Taken Unknown] Metoclopramide [Reglan 5 mg (*)] 5 mg PO DAILY PRN 07/25/17 [Last Taken 07/24/17 ] Multivitamins [Multivitamin (*)] 1 each PO DAILY 07/25/17 [Last Taken Unknown] Omeprazole 20 mg PO DAILY 07/25/17 [Last Taken 07/24/17] Topiramate [Topamax 100MG (*)] 100 mg PO HS 07/25/17 [Last Taken 07/23/17] Discharge Medications: Refer to the Discharge Home Medication list for PRN reason. - Orders Services needed: Home Care, Physical Therapy, Occupational Therapy Home Care Face to Face: I certify that this patient was under my care and that I had the required [id number] encounter meeting the encounter requirements on the discharge day. My findings support the fact that the patient is homebound as defined in Home Care Face to Face Continued: CMS Chapter 7 Medicare Benefits Manual 30.1.1 , The condition of the patient is such that there exists a normal inability to leave home and consequently, leaving home would require a considerable and taxing effort. Isolation Type: None Diet Recommendation: no restrictions on diet Additional Instructions: Follow up with Dr. Franco in 1-2 weeks. - Follow Up Care Current Providers and Referrals: NONE *PRIMARY CARE P,. [Primary Care Provider] -
--- NOTE | 2017-07-27 14:17 | GDS ---
[f rep st] DISCHARGE SUMMARY DISCHARGE DIAGNOSES: 1. Low back pain due to musculoskeletal pain. 2. Functional nonorganic lower extremity weakness. 3. Continuous narcotic dependency. 4. Status post laminectomy, previous cauda equina syndrome. HISTORY: Gabriella is a 41-year-old female, who has a history of chronic back pain, after rupturing a disk with cauda equina syndrome. Requiring emergent surgery while she was with her last c hild. She is on chronic narcotics. Recently while putting on a pair of pants, she twisted funny, dutton bsequently fell and since then has been having severe excruciating worsening low back pain. She was admitted to the hospital and seen in consultation with neurosurgery. She did claim some lower extrem ity weakness and radiating pain down her legs, as well as possible clonus initially being found on ex am. Per Neurosurgery she received CT scans of her cervical, thoracic and lumbar spine, all were norm al. Once her workup was complete, we focused on nonnarcotic therapy for her back pain. She received IV ketamine and acupuncture. She was seen by PT, OT, felt to be safe to discharge home with home he alth. She was counseled at length regarding the benefits of nonnarcotic therapy and acute low back p ain. Neurosurgery thought they elicited clonus on her lower extremity, this resulted in a Neurology consul tation. Per Neurology, Dr. Alvarado, there is absolutely no clonus present. Her lower extremity weak ness and distribution of numbness are nonorganic, and he signed off and did not think she needed any further workup. The patient was extremely emotional throughout her hospitalization and Social Work s aw her to offer support and counseling regarding her life stressors, which appear to be overwhelming to her. DISCHARGE MEDICATIONS: Please see computerized record for full detailed list. There are no new medi cations given at time of hospital discharge. ADDITIONAL DISCHARGE INSTRUCTIONS: 1. Follow up with Dr. Franco in 1-2 weeks. 2. Home health PT, OT. Greater than 30 minutes of time was spent arranging this discharge. /[id number]/MODL
== END 2017-07-27 12:24 | disposition home health service (06) | DRG 552 ==
LOC: OBSVTOIN 23:10 → F3E 07-25 01:12 → F2N 07-26 15:44
PROVIDERS: ADMIT Student in an Organized Health Care Education/Training Program; ATTEND Internal Medicine
DX: M51.16 Intervertebral disc disorders with radiculopathy, lumbar region (principal); G89.29 Other chronic pain; F11.20 Opioid dependence, uncomplicated; M54.2 Cervicalgia; F41.8 Other specified anxiety disorders; T40.605A Adverse effect of unspecified narcotics, initial encounter; I95.2 Hypotension due to drugs; E66.9 Obesity, unspecified; R25.8 Other abnormal involuntary movements; G43.909 Migraine, unspecified, not intractable, without status migrainosus; Z23 Encounter for immunization; R33.9 Retention of urine, unspecified; R15.9 Full incontinence of feces; F17.210 Nicotine dependence, cigarettes, uncomplicated; Z68.29 Body mass index [BMI] 29.0-29.9, adult
CPT/HCPCS: 96374; 97110-GP; 97116-GP; 97161-GP; 97165-GO; G0009; G0378; J1170; J1885; J2765; J3360

== ENCOUNTER 2017-07-30 18:17 | Emergency (ER) | payer OTHER ==
[2017-07-30 18:27] VITALS: BP 141/91
--- NOTE | 2017-07-30 18:38 | EDPHY ---
H & P Stated Complaint: back pain, bowel/blader incont etc continues after dc [facility] similar s/s Time Seen by Provider: 07/30/17 18:36 HPI/ROS: CHIEF COMPLAINT: Ongoing back pain HISTORY OF PRESENT ILLNESS: The patient has a history prior lumbar surgery from a cauda equina syndrome which developed while she was 9 months . The patient has been on chronic narcotics and benzodiazepines since that time. The patient was just admitted to the hospital for symptoms of lower extremity numbness, weakness and reported incontinence. She had an extensive evaluation including MRIs and consultation by Neurology and Neurosurgery. The patient was felt to be having nonorganic lower extremity weakness and incontinence. She was discharged from the emergency department. She returns to the ED today because she informs me that her chronic pain clinic has been closed. She is still unable to achieve adequate pain control by her report. The patient is on a number of narcotic medications including long-acting morphine and 16 mg a day of Dilaudid. She also is taking Valium. REVIEW OF SYSTEMS: A comprehensive 10 point review of systems is otherwise negative aside from elements mentioned in the history of present illness. Source: Patient - Personal History LMP (Females 10-55): Hysterectomy Tetanus Vaccine Date: 2013 - Medical/Surgical History Hx Asthma: No Hx Chronic Respiratory Disease: No Hx Diabetes: No Hx Cardiac Disease: No Hx Renal Disease: No Hx Cirrhosis: No Hx Alcoholism: No Hx HIV/AIDS: No Hx Splenectomy or Spleen Trauma: No Other PMH: Cauda equina syndrome, hysterectomy, bowel bladder rectal prolapse repair, appy, tonsillectomy, , anxiety, migraines, oophorectomy - Social History Smoking Status: Current some day smoker - Physical Exam Exam: General Appearance: Alert, no distress Eyes: Pupils equal and round no pallor or injection ENT, Mouth: Mucous membranes moist Respiratory: There are no retractions, lungs are clear to auscultation Cardiovascular: Regular rate and rhythm Gastrointestinal: Abdomen is soft and nontender, no masses, bowel sounds normal Neurological: Patient is somewhat uncooperative with neurologic examination. She seems to have symmetric motor strength bilaterally. She has no hyperreflexia. She has no clonus Skin: Warm and dry, no rashes Musculoskeletal: Surgical incision, clean dry and intact Extremities: symmetrical, full range of motion Constitutional: Initial Vital Signs Temperature (C) 37.0 C 07/30/17 18:23 Heart Rate 112 H 07/30/17 18:23 Respiratory Rate 16 07/30/17 18:23 Blood Pressure 141/91 H 07/30/17 18:23 O2 Sat (%) 95 07/30/17 18:23 O2 Delivery Mode Room Air Allergies/Adverse Reactions: Sulfa (Sulfonamide Antibiotics) Allergy (Severe, Verified 07/24/17 18:34) Other-Enter Comments codeine Allergy (Intermediate, Verified 07/24/17 18:34) Rash morphine Allergy (Intermediate, Verified 07/24/17 18:34) Rash Home Medications: Medication Instructions Recorded Escitalopram Oxalate [Lexapro] 20 mg PO HS 02/14/16 QUEtiapine FUMARATE [Seroquel 100 100 mg PO HS 02/14/16 mg (*)] Diazepam [Valium 5 MG (*)] 5 mg PO BID@09,14 07/19/16 Clindamycin 150 mg PO Q6HRS 07/24/17 HYDROmorphone HCL [Dilaudid 4 mg 4 mg PO Q6HRS 07/24/17 (*)] morphINE SR [Ms Contin/Oramorph 15 15 mg PO BID 07/24/17 mg (*)] Acet/Caffeine/Buta Fioricet 1 each PO DAILY PRN 07/25/17 [Fioricet (*)] Acetaminophen [Tylenol 325mg (*)] 325 mg PO DAILY PRN 07/25/17 Clindamycin 1% [Cleocin 1% Lotion] 1 quinn TP BID 07/25/17 Ibuprofen [Motrin (*)] 200 mg PO DAILY PRN 07/25/17 Metoclopramide [Reglan 5 mg (*)] 5 mg PO DAILY PRN 07/25/17 Multivitamins [Multivitamin (*)] 1 each PO DAILY 07/25/17 Omeprazole 20 mg PO DAILY 07/25/17 Topiramate [Topamax 100MG (*)] 100 mg PO HS 07/25/17 Medical Decision Making ED Course/Re-evaluation: The patient presents to the ED with chronic back pain. I reviewed her past medical records and do not feel that she presents with acute neurosurgical emergency. I also do not feel I have any new pain medications to offer this patient. The patient has requested a referral to a new pain clinic. I have provided her the contact information of a pain clinic here in [place]. Departure - Departure Disposition: Home, Routine, Self-Care Clinical Impression: Acute exacerbation of chronic low back pain Condition: Good Instructions: Low Back Strain (ED) Additional Instructions: 1. Please contact Dr. Juárez and try to establish a new relationship with a chronic pain specialist. 2. Follow up with Dr. Franco as scheduled.
== END 2017-07-30 19:25 | disposition home or self-care (01) ==
DX: O99.89 Other specified diseases and conditions complicating pregnancy, childbirth and the puerperium (principal); M54.5 Low back pain; G89.29 Other chronic pain; F17.200 Nicotine dependence, unspecified, uncomplicated

== ENCOUNTER 2017-09-24 14:27 | Emergency (ER) | payer OTHER ==
--- NOTE | 2017-09-24 14:36 | EDPHY ---
H & P Stated Complaint: Mechanical fall Time Seen by Provider: 09/24/17 14:36 - Personal History LMP (Females 10-55): Hysterectomy Current Tetanus/Diphtheria Vaccine: Yes Tetanus Vaccine Date: 2013 - Medical/Surgical History Hx Asthma: No Hx Chronic Respiratory Disease: No Hx Diabetes: No Hx Cardiac Disease: No Hx Renal Disease: No Hx Cirrhosis: No Hx Alcoholism: No Hx HIV/AIDS: No Hx Splenectomy or Spleen Trauma: No Other PMH: Cauda equina syndrome, hysterectomy, bowel bladder rectal prolapse repair, appy, tonsillectomy, , anxiety, migraines, oophorectomy - Social History Smoking Status: Light smoker Constitutional: Initial Vital Signs Temperature (C) 37.0 C 09/24/17 14:29 Heart Rate 119 H 09/24/17 14:29 Respiratory Rate 20 09/24/17 14:29 Blood Pressure 124/85 H 09/24/17 14:29 O2 Sat (%) 97 09/24/17 14:29 O2 Delivery Mode Room Air Allergies/Adverse Reactions: Sulfa (Sulfonamide Antibiotics) Allergy (Severe, Verified 09/24/17 14:34) Other-Enter Comments codeine Allergy (Intermediate, Verified 09/24/17 14:34) Rash morphine Allergy (Intermediate, Verified 09/24/17 14:34) Rash Home Medications: Medication Instructions Recorded Escitalopram Oxalate [Lexapro] 20 mg PO HS 02/14/16 QUEtiapine FUMARATE [Seroquel 100 100 mg PO HS 02/14/16 mg (*)] Diazepam [Valium 5 MG (*)] 5 mg PO BID@09,14 07/19/16 Clindamycin 150 mg PO Q6HRS 07/24/17 HYDROmorphone HCL [Dilaudid 4 mg 4 mg PO Q6HRS 07/24/17 (*)] morphINE SR [Ms Contin/Oramorph 15 15 mg PO BID 07/24/17 mg (*)] Acet/Caffeine/Buta Fioricet 1 each PO DAILY PRN 07/25/17 [Fioricet (*)] Acetaminophen [Tylenol 325mg (*)] 325 mg PO DAILY PRN 07/25/17 Clindamycin 1% [Cleocin 1% Lotion] 1 quinn TP BID 07/25/17 Ibuprofen [Motrin (*)] 200 mg PO DAILY PRN 07/25/17 Metoclopramide [Reglan 5 mg (*)] 5 mg PO DAILY PRN 07/25/17 Multivitamins [Multivitamin (*)] 1 each PO DAILY 07/25/17 Omeprazole 20 mg PO DAILY 07/25/17 Topiramate [Topamax 100MG (*)] 100 mg PO HS 07/25/17 Medical Decision Making - Diagnostics Imaging Results: Imaging Impressions Cervical Spine MRI 09/24/17 14:46 Impression: 1. Old mild compression deformities at C7 and T2 vertebral bodies. 2. No acute compression fracture, central canal stenosis, neural foraminal stenosis, cord compression, or definite ligament tear. 3. Normal cervical spinal cord without cord edema or myelomalacia. 4. Please see above findings at specific disk levels. Findings and recommendations discussed with Emergency Department physician, Dr. Abelardo Mckeon at 1730 hours on September 24, 2017. Final report concurs with initial preliminary interpretation. Lumbar Spine MRI 09/24/17 15:28 Impression: 1. No acute lumbar compression fracture or paraspinal hematoma. 2. Previous bilateral posterior laminectomies at L4-L5 and L5-S1. 3. L4-L5 central disk herniation, protrusion, measuring 6 mm, with minimal if any interval change since June 2017, causing mild bilateral lateral recess stenosis, left slightly greater than right, without neural foraminal stenosis or significant central canal stenosis. 4. Please see above findings at specific disk levels. Findings and recommendations discussed with Emergency Department physician, Dr. Abelardo Mckeon at 1730 hours on September 24, 2017. Final report concurs with initial preliminary interpretation. Imaging: Discussed imaging studies w/ scallop dredger Radiologist ED Course/Re-evaluation: CHIEF COMPLAINT: Neck and low back pain HISTORY OF PRESENT ILLNESS: Patient slipped on one of her child's toys two days ago. She hit the ground and injured her lower back and her neck. She saw her physical therapist today. She is having some numbness and tingling ear dull feeling in her upper extremities bilaterally into her ring and little fingers. She denies any true weakness of her upper extremities. She also states that her lower back hurts and she is having bilateral heaviness in her legs with more significant heaviness in the left leg. She does have a history of cauda equina syndrome when she was and this feels similar but not as severe to her. She denies fevers or chills. She denies any recent instrumentation of her spine. She denies bowel or bladder dysfunction. REVIEW OF SYSTEMS: A 10 point review of systems was performed and is negative with the exception of the elements mentioned in the history of present illness. PHYSICAL EXAM: HR, BP, O2 Sat, RR. Temp noted General Appearance: Alert, well hydrated, appropriate, and non-toxic appearing. Head: Atraumatic without scalp tenderness or obvious injury Eyes: Pupils equal, round, reactive to light and accommodation, EOMI, no trauma , no injection. Ears: Clear bilaterally, no perforation, normal landmarks Nose: Atraumatic, no rhinorrhea, clear. Throat: There is no erythema or exudates, no lesions, normal tonsils, mucus membranes moist. Neck: Supple, 2+ carotid upstroke, nontender, no lymphadenopathy. Respiratory: No retractions, no distress, no wheezes, and no accessory muscle use. Lungs are clear to auscultation bilaterally. Cardiovascular: Regular rate and rhythm, no murmurs, rubs, or gallops. Bilateral carotid, radial, dorsalis pedis, and posterior tibial pulses intact. Good capillary refill all extremities. Gastrointestinal: Abdomen is soft, nontender, non-distended, no masses, no rebound, no guarding, no peritoneal signs. Musculoskeletal: Normal active ROM of all extremities, atraumatic. Neurological: Alert, appropriate, and interactive. The patient has normal DTRs and non-focal cranial nerves, motor, sensory, and cerebellar exam. Skin: No rashes, good turgor, no nodules on palpation. Past medical history: Cauda equina syndrome Past surgical history: Cauda equina syndrome Family history: Noncontributory Social history: , employed, does not abuse tobacco drugs or alcohol, accompanied by and child DIAGNOSTICS/PROCEDURES/CRITICAL CARE TIME: Study: MRI of the: Cervical spine and lumbar spine Indication: Trauma and neurologic deficits Results: MRI scan of the cervical and lumbar spine was obtained. The results of the study are normal c-spine, minimal increase in L4-L5 disc herniation. The study was read by the radiologist, Dr. Lamas. I viewed the images myself on the PACS system. DIFFERENTIAL DIAGNOSIS: The differential diagnosis for the patient's back pain included but was not limited to musculo-skeletal pain, epidural abscess, herniated disk, spinal fracture, and intra-abdominal causes including urinary system. MEDICAL DECISION MAKING: This patient has no evidence of cauda equina syndrome. However, I am concerned based on her description that her bilateral leg symptoms feel similar to which she did have cauda equina syndrome. She also is complaining of neurologic dysfunction mostly sensory of her upper extremities after this trauma. MRIs of both areas are pending. Reviewed past medical records including admission 07/24/17 for similar symptoms. MRI and neurologic consult at that time were negative for significant findings. We will reassess as above due to new trauma. 17:[address] Lamas, radiologist. MRI c-spine is completely normal. There is a slight minimal increase in the L4-L5 disc herniation that was present on prior MRI in June. Unsure if this is acute. There is no impingement at the site due to prior laminectomy. 18:05 Reassessed patient. Discussed imaging results. Plan to discharge home in good condition with prescription for oxycodone IR for pain control. She also requests antiemetics, and states Zofran usually does not work. I will provide Reglan for nausea relief. She will follow up with her primary care provider. Return precautions discussed. She is comfortable with this plan. - Data Points Laboratory Results: 09/24/17 15:54 POC Hgb 14.6 gm/dL gm/dL (12.6-16.3) POC Hct 43 % % (38-47) POC Sodium 140 mEq/L mEq/L (135-145) POC Potassium 3.7 mEq/L mEq/L (3.3-5.0) POC Chloride 107 mEq/L mEq/L (97-110) POC BUN 11 mg/dL mg/dL (7-23) POC Creatinine 0.6 mg/dL mg/dL (0.6-1.0) POC Glucose 107 mg/dL H mg/dL (70-100) Medications Given: Discontinued Medications Lorazepam (Ativan) 1 mg PO EDNOW ONE Stop: 09/24/17 16:44 Last Admin: 09/24/17 16:49 Dose: 1 mg Oxycodone/Acetaminophen (Percocet 5/325) 2 tab PO EDNOW ONE Stop: 09/24/17 15:48 Last Admin: 09/24/17 15:49 Dose: 2 tab Point of Care Test Results: Chemistry 09/24/17 15:54 POC Sodium 140 mEq/L mEq/L (135-145) POC Potassium 3.7 mEq/L mEq/L (3.3-5.0) POC Chloride 107 mEq/L mEq/L (97-110) POC BUN 11 mg/dL mg/dL (7-23) POC Creatinine 0.6 mg/dL mg/dL (0.6-1.0) POC Glucose 107 mg/dL H mg/dL (70-100) ISTAT H&H 09/24/17 15:54 POC Hgb 14.6 gm/dL gm/dL (12.6-16.3) POC Hct 43 % % (38-47) Departure - Departure Disposition: Home, Routine, Self-Care Clinical Impression: Acute exacerbation of chronic low back pain, Herniation of intervertebral disc between L4 and L5, Musculoskeletal neck pain, Musculoskeletal back pain Condition: Fair Instructions: Back Pain (ED) Additional Instructions: Follow up with your primary care provider. Take oxycodone as prescribed as needed for severe pain. Take Reglan as prescribed as needed for nausea. Return to the emergency department for severe pain, fever, numbness, difficulty walking, change in location or nature of pain or other concerns. Referrals: Isabel Garrido MD [Primary Care Provider] - As per Instructions Report Scribed for: Abelardo Mckeon Report Scribed by: Whitney Hagan Date of Report: 09/24/17 Time of Report: 14:52
[2017-09-24] MEDS ORDERED: OXYCODONE/APAP 5/325 TAB PO ONE (15:47)
[2017-09-24] MEDS ORDERED: GADOBUTROL 10 ML VIAL IVP ONE (16:08)
[2017-09-24] MEDS ORDERED: LORazepam 1 MG TAB PO ONE (16:43)
[2017-09-24 18:49] VITALS: BP 117/82
== END 2017-09-24 18:46 | disposition home or self-care (01) ==
DX: M51.26 Other intervertebral disc displacement, lumbar region (principal); G89.29 Other chronic pain; M54.2 Cervicalgia; F17.200 Nicotine dependence, unspecified, uncomplicated
CPT/HCPCS: 82435-PO; 82565-PO; 82947-PO; 84132-PO; 84295-PO; 84520-PO; 85014-PO; A9585

== ENCOUNTER 2018-04-03 11:25 | Emergency (ER) | payer OTHER ==
[2018-04-03] MEDS ORDERED: METOCLOPRAMIDE 10 MG/2 ML VIAL IVP ONE (12:28)
[2018-04-03] MEDS ORDERED: DIAZEPAM 5 MG TAB PO ONE (12:28)
[2018-04-03] MEDS ORDERED: NS 1,000 ML IV ONE (12:29)
[2018-04-03 13:05] LABS: PLATELET COUNT 261 10^3/uL (150-400)
[2018-04-03] MEDS ORDERED: GADOBUTROL 10 ML VIAL IVP ONE (13:57)
[2018-04-03] MEDS ORDERED: KETAMINE 200 MG/20 ML VIAL IVP ONE (14:55)
[2018-04-03] MEDS ORDERED: DEXAMETHASONE 4 MG/ML VIAL IVP ONE (14:55)
--- NOTE | 2018-04-03 15:07 | EDPHY ---
General Time Seen by Provider: 04/03/18 12:06 Narrative: CLINICAL IMPRESSION: Acute on chronic lumbar back pain, saddle anesthesia, rectal incontinence, urinary retention ASSESSMENT/PLAN: 42-year-old female with a history of chronic lumbar back pain, followed by [facility], with a history of cauda equina syndrome when she was 9 months , currently followed by the [facility]. She takes daily Dilaudid and morphine. Patient presents to the ED complaining of approximately 5 days of worsening pain, new saddle anesthesia, fecal incontinence and urinary retention. Bladder scan shows urine volume just over 200 mL. Patient did not have any urinary incontinence or fecal incontinence during her ED stay. Upon review of prior ED visits, patient has given a similar history yet has had several normal lumbar spine MRIs. I did repeat lumbar spine MRI with and without contrast today, and according to Radiology it was improved compared to prior scans with only mild disc protrusion at L4-5 and L5-S1. Patient was given Valium and IV ketamine. She initially reported to me that despite multiple attempts at calling [facility] she was unable to get an appointment however when I explained to her MRI results she told me she has an appointment next week with Dr. Franco. Labs are reassuring, normal sed rate, no leukocytosis, renal insufficiency, metabolic disturbance. No reported fever or chills. Case discussed at length with Dr. Blancas. 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 Warning signs return to ED sooner alignment discharge. DIFFERENTIAL DX: Differential diagnosis includes but not limited to muscular pain, herniated disc , spine fracture, cauda equina, epidural abscess, infectious causes, intra- abdominal causes, pyelonephritis and urinary tract infection. ED PROCEDURES: See lab and/or imaging results below ED COURSE: 3:00pm: MRI looks better than L4-5 disc protrusion is smaller. L5-S1 small disc protrusion otherwise unremarkable MRI that actually looks improved compared to prior. No abscess or other acute abnormality. 3:45 p.m.: MRI and lab results discussed with the patient and her . She states she has had a bad reaction to Decadron in the past but has been able to take prednisone. Will give a prednisone taper. Despite the patient initially telling me that she has been unsuccessful in getting an appointment with Neurosurgery, she now reports that she does have an appointment next week with Dr. Franco. NON-traumatic Back Pain Pathway--Low/medium concern for Acute Spinal Emergency ( ASE) High Sensitivity Neuro Exam (HSNE) Cervical pain C1-4: sensation back of head/neck no unilateral decrease in sensation. C5: Deltoid (motor) no unilateral weakness or deficit. C6: Biceps (motor) no unilateral weakness or deficit. C7: Extend wrist/fingers no unilateral weakness or deficit C8: Flex fingers no unilateral weakness or deficit Thoracic pain T1: move fingers apart no unilateral deficit. T2-12: trunk sensationno unilateral deficit. Lumbar pain L1: inner thigh sensation no unilateral weakness or deficits. L2: ADduct thigh (cross legs) bilateral weakness. L3: Extend knee no unilateral weakness. L4: Ankle dorsiflexion bilateral weakness. L5: Great toe extension bilateral weakness. S1: Flex knee bilateral weakness. S3-4: bladder/bowel function subjective fecal incontinence. NO DEFICITS = Check Red Flags MINOR (1 pt each) Alcohol abuse no DM no Renal failure no Night pain yes 3rd visit in <= 20 days no MAJOR (3 pts each) IVDA denies Fever without focus no Recent/current systemic infection no Immunosuppression (physician discretion) no Recent spinal fracture/spinal procedure (ESR is not a good screen for spinal epidural hematoma) none reported New bladder/bowel incontinence or retention subjective urinary retention Total Red Flag score 4 Total Red Flag score <= 3 AND neuro exam is at baseline ---> no MRI is recommended"," >= 4 AND neuro exam in non focal --> check ESR" ESR level: WNL --> no MRI"," elevated --> MRI ordered" CHIEF COMPLAINT: acute on chronic back pain. HPI: This is a 42-year-old female with a reported past medical history of cauda equina, anxiety and chronic pain, followed by the [facility], takes Dilaudid and morphine daily, presents to the emergency department with complaints of atraumatic worsening right-sided back pain associated with new onset saddle anesthesia, fecal incontinence and a sensation of urinary retention. Patient admits that she has been seen in the emergency department for these symptoms in the past. She has had numerous lumbar MRIs and reports that she had an MRI in December showing slipped discs. She has fallen a couple times because she states ever since she has become more weak with increased numbness to her pelvic region and legs. No reported fever, chills, URI symptoms, abdominal pain, diarrhea or vomiting. She states she has not been able to get an appointment with Neurosurgery despite calling multiple times over the last several months. She has been admitted to the hospital in the past for her back pain, had a normal neurological evaluation, was seen by Neurosurgery at that time as well. She reports since she has had to use a cane to ambulate and was able to bear weight today but had to use a cane to walk into the ED. She is asking for medication for pain. PAST MEDICAL HISTORY: Cauda equina, anxiety, migraines See nurse/triage notes for additional history if applicable Pertinent Past Surgical History: Hysterectomy, oophorectomy, , tonsillectomy, appendectomy, rectal prolapse repair Family History: Noncontributory Social History: Denies alcohol drugs and tobacco use. Chronic pain patient on daily Dilaudid and MS Contin 30 mg. REVIEW OF SYSTEMS: All other systems negative Constitutional: No fever, no chills, appetite change. Eyes: No discharge, vision change ENT: No sore throat, congestion, ear pain. Cardiovascular: No chest pain, no palpitations. Respiratory: No cough, no shortness of breath. Gastrointestinal: No abdominal pain, no vomiting, diarrhea. Genitourinary: No hematuria, dysuria, flank pain, pelvic pain Musculoskeletal: Positive back pain, denies joint swelling, joint pain, myalgias. Skin: No rashes, color change. Neurological: No headache, dizziness, positive weakness. PHYSICAL EXAM: General Appearance: Alert, oriented, appropriate, cooperative, NAD, well hydrated, non-toxic appearing, VSS, no hypoxia. Neck: Supple, nontender, no lymphadenopathy, no midline pain, FROM, no meningismus. Respiratory: There are no retractions, lungs are clear to auscultation. Cardiac: Regular rate and rhythm, no murmurs or gallops. Gastrointestinal: Abdomen is soft, nontender, bowel sounds normal, no masses/ hernia, no rigidity, guarding or focal peritoneal findings. Rectal exam not performed Neurological: Alert and oriented x 3, patient reports she is unable to perform [id number] testing bilaterally. Mild 3 beat clonus to dorsiflexion of the right foot. No reported sensory change to bilateral lower extremities to sharp and dull touch. Subjective saddle anesthesia. Reproducible pain to multiple areas of the midline low back and sacral area. Positive straight leg raise on both sides at 20 degrees. Patellar DTRs 2+ bilaterally. Skin: Warm, dry, no rashes, no nodules on palpation. Musculoskeletal: Extremities are symmetrical, full range of motion, no tenderness, deformity, swelling, or erythema. Psychiatric: Patient is oriented X 3, there is no agitation. MEDICAL DECISION MAKING: Patient was seen independently. Secondary supervising physician at time of evaluation was Dr. Blancas . Diagnosis: Acute on chronic lumbar back pain, subjective saddle anesthesia, urinary retention, and fecal incontinence. New, requires workup Summary: See Assessment and Plan for summary of ED visit Clinical lab tests: ordered / reviewed. Independent visualization of images, tracing, or specimens: Yes. Decision to obtain medical records or history from someone other than the patient: No Review / Summarize previous medical records: Reviewed past ED records and MRI reports Discussed patient with another provider: Dr. Blancas Patient Progress: Improved. - History Smoking Status: Light smoker - Objective Vital Signs: Initial Vital Signs Temperature (C) 37.0 C 04/03/18 11:40 Heart Rate 92 04/03/18 11:40 Respiratory Rate 16 04/03/18 11:40 Blood Pressure 110/83 H 04/03/18 11:40 O2 Sat (%) 94 04/03/18 11:40 O2 Delivery Mode Room Air Allergies/Adverse Reactions: Sulfa (Sulfonamide Antibiotics) Allergy (Severe, Verified 04/03/18 11:43) Other-Enter Comments codeine Allergy (Intermediate, Verified 04/03/18 11:43) Rash morphine Allergy (Intermediate, Verified 04/03/18 11:43) Rash dexamethasone [From Decadron] Allergy (Verified 04/03/18 15:37) Home Medications: Medication Instructions Recorded Escitalopram Oxalate [Lexapro] 20 mg PO HS 02/14/16 QUEtiapine FUMARATE [Seroquel 100 100 mg PO HS 02/14/16 mg (*)] Diazepam [Valium 5 MG (*)] 5 mg PO BID@09,14 07/19/16 Clindamycin 150 mg PO Q6HRS 07/24/17 HYDROmorphone HCL [Dilaudid 4 mg 4 mg PO Q6HRS 07/24/17 (*)] morphINE SR [Ms Contin/Oramorph 15 15 mg PO BID 07/24/17 mg (*)] Acet/Caffeine/Buta Fioricet 1 each PO DAILY PRN 07/25/17 [Fioricet (*)] Acetaminophen [Tylenol 325mg (*)] 325 mg PO DAILY PRN 07/25/17 Clindamycin 1% [Cleocin 1% Lotion] 1 quinn TP BID 07/25/17 Ibuprofen [Motrin (*)] 200 mg PO DAILY PRN 07/25/17 Metoclopramide [Reglan 5 mg (*)] 5 mg PO DAILY PRN 07/25/17 Multivitamins [Multivitamin (*)] 1 each PO DAILY 07/25/17 Omeprazole 20 mg PO DAILY 07/25/17 Topiramate [Topamax 100MG (*)] 100 mg PO HS 07/25/17 Metoclopramide [Reglan 5 mg (*)] 5 mg PO TID PRN #10 tab 09/24/17 oxyCODONE IR [Oxycodone Ir (*)] 5 - 10 mg PO Q6 PRN #20 tab 09/24/17 oxyCODONE IR [Oxycodone Ir (*)] 1 - 2 tab PO Q6 PRN #20 tab 09/25/17 predniSONE [Prednisone] 40 mg PO DAILY #20 tablet 04/03/18 Laboratory Results: Laboratory Results 04/03/18 12:56 04/03/18 12:56 Medications Given: Discontinued Medications Dexamethasone (Decadron Injection) 10 mg IVP EDNOW ONE Stop: 04/03/18 14:56 Last Admin: 04/03/18 15:30 Dose: Not Given Diazepam (Valium) 5 mg PO EDNOW ONE Stop: 04/03/18 12:29 Last Admin: 04/03/18 13:05 Dose: 5 mg Diphenhydramine HCl (Benadryl Injection) 25 mg IVP EDNOW ONE Stop: 04/03/18 12:30 Last Admin: 04/03/18 13:06 Dose: 25 mg Sodium Chloride (Ns) 1,000 mls @ 0 mls/hr IV EDNOW ONE; Wide Open PRN Reason: Protocol Stop: 04/03/18 12:30 Last Admin: 04/03/18 13:05 Dose: 1,000 mls Ketamine HCl (Ketamine) 20 mg IVP EDNOW ONE Stop: 04/03/18 14:56 Last Admin: 04/03/18 15:30 Dose: 20 mg Ketamine HCl (Ketamine) 20 mg IVP EDNOW ONE Stop: 04/03/18 16:07 Last Admin: 04/03/18 16:08 Dose: 20 mg Metoclopramide HCl (Reglan Injection) 10 mg IVP EDNOW ONE Stop: 04/03/18 12:29 Last Admin: 04/03/18 13:06 Dose: 10 mg Departure - Departure Disposition: Home, Routine, Self-Care Clinical Impression: Back pain, Saddle anesthesia Condition: Fair Instructions: Chronic Back Pain (DC) Additional Instructions: DISCHARGE INSTRUCTIONS FROM YOUR DOCTOR Thank you for visiting our emergency department today. Please keep in mind that discharge from the emergency department does not mean that there is nothing wrong - it simply means that we have not identified an emergency condition that requires further evaluation or treatment in the hospital. You should always plan to follow up with primary care for re-evaluation of your condition in the next 2-3 days. If you have been referred to a specialist, please call as soon as possible (today or tomorrow) to schedule your follow up appointment at the appropriate time. THE MRI OF HER BACK TODAY WAS READ BY RADIOLOGY APPEARING BETTER THAN PREVIOUS MRIS. YOU HAVE A SMALL DISC PROTRUSION AT L4-5 AND AT L5-S1 WITH NO CLINICAL SIGN OF CAUDA EQUINA SYNDROME, EPIDURAL ABSCESS, OR OTHER ACUTE ABNORMALITY. LAB WORK WAS REASSURING. NO ELEVATION INFECTION FIGHTING COUNT. INFLAMMATORY MARKERS WERE NORMAL AND THE REMAINDER OF LABS ARE REASSURING. WE RECOMMEND THAT YOU CONTACT [facility], LET THEM KNOW YOUR IN THE EMERGENCY DEPARTMENT AND THAT WE REQUESTED A FOLLOW-UP APPOINTMENT. A REFERRAL WAS GIVEN. PLEASE FOLLOW UP WITH HER PRIMARY PAIN MANAGEMENT PROVIDER TO DISCUSS PAIN CONTROL. A SHORT STEROID TAPER WAS PRESCRIBED. RETURN TO THE EMERGENCY DEPARTMENT FOR WORSENING PAIN, FEVER, ABDOMINAL PAIN OR ANY OTHER CONCERN. People present with illnesses and injuries in different ways, and it is always possible that we have missed something. You may always return for re-evaluation if symptoms worsen or if they are not improving or if you develop new/different symptoms. Again, thank you for choosing our emergency department. We hope that you feel better. Referrals: Jamie Brenner MD [Medical Doctor] - As per Instructions Isabel Garrido MD [Primary Care Provider] - As per Instructions Caleb Franco MD [Medical Doctor] - 3-4 days, if not improved Prescriptions: predniSONE [Prednisone] 40 mg PO DAILY #20 tablet
[2018-04-03] MEDS ORDERED: KETAMINE 200 MG/20 ML VIAL ONE (16:04)
[2018-04-03] MEDS ORDERED: KETAMINE 500 MG/10 ML VIAL IVP ONE (16:06)
[2018-04-03 16:09] VITALS: BP 104/64
== END 2018-04-03 16:34 | disposition home or self-care (01) ==
DX: M54.5 Low back pain (principal); R20.0 Anesthesia of skin; E86.9 Volume depletion, unspecified; R33.9 Retention of urine, unspecified; R15.9 Full incontinence of feces; M51.27 Other intervertebral disc displacement, lumbosacral region; M51.36 Other intervertebral disc degeneration, lumbar region; M51.37 Other intervertebral disc degeneration, lumbosacral region; F41.9 Anxiety disorder, unspecified; G43.909 Migraine, unspecified, not intractable, without status migrainosus; F17.200 Nicotine dependence, unspecified, uncomplicated; Z88.2 Allergy status to sulfonamides
CPT/HCPCS: 96374; A9585; J1100; J1200; J2765

== ENCOUNTER 2018-04-22 17:47 | Inpatient (IN) | payer OTHER ==
[2018-04-22] MEDS ORDERED: HALOPERIDOL LACT 5 MG/ML INJ IVP ONE ×2 (18:49→20:13)
[2018-04-22] MEDS ORDERED: DIAZEPAM 5 MG/ML 1 ML SYR IVP ONE (18:51)
[2018-04-22] MEDS ORDERED: KETAMINE 200 MG/20 ML VIAL IVP ONE ×2 (18:52→19:41)
--- NOTE | 2018-04-22 19:01 | EDPHY ---
H & P Stated Complaint: back pain Time Seen by Provider: 04/22/18 18:19 HPI/ROS: CHIEF COMPLAINT: Acute on chronic back pain HISTORY OF PRESENT ILLNESS: 42-year-old female history of chronic low back pain , history of cauda equina when she was , history of opiate dependence, seen 04/03/2018 in the ER for back pain with MRI performed showing improved L4-5 disc protrusion. Few days ago she was walking with her son, he fell, she slipped and caught herself sustained no direct trauma or fall however this exacerbated her back pain. Yesterday she was walking and misstepped and this also exacerbated her back pain. No direct trauma or fall. She states that this feels distinctly different than her cauda equina. She is experiencing bilateral lower extremity paresthesias with no incontinence or retention. Questionable saddle anesthesia which is acute. No footdrop. No fever or chills. Pain resolved if she is laying supine, worse if she is ambulating or standing erect. PRIMARY CARE PROVIDER: REVIEW OF SYSTEMS: A ten point review of systems was performed and is negative with the exception of the items mentioned in the HPI PAST MEDICAL & SURGICAL HISTORY: Chronic back pain. Cauda equina. Opiate dependence consisting of daily Dilaudid and morphine. SOCIAL HISTORY: with child. PHYSICAL EXAM (Prior to examination, patient consented to physical exam, hands were washed and my usual and customary physical exam procedures followed) 1) GENERAL: Well-developed, well-nourished, alert and oriented. Appears nontoxic appears to be in no acute distress. 2) HEAD: Normocephalic, atraumatic 3) HEENT: Pupils equal, round, reactive to light bilaterally. Sclera anicteric. Nasopharynx, oropharynx, clear, no lesions. 4) NECK: Full range of motion, no meningeal signs. 5) LUNGS: Clear auscultation bilaterally, no wheezes, no rhonchi, no retractions. 6) HEART: Regular rate and rhythm, no murmur, no heave, no gallop. 7) ABDOMEN: No guarding, no rebound, no focal tenderness, negative McBurney's, negative Miller's, negative Rovsing's, negative peritoneal sign, 8) MUSCULOSKELETAL: Moving all extremities, no focal areas of tenderness, no obvious trauma. No peripheral edema or discoloration. 9) BACK: Significant pain to the lower back region when patient is asked to rollover remove/perform range of motion at the waist.. Patella, Achilles reflexes intact to bilateral strength 5/5 10) SKIN: No rash, no petechiae. 11) NEURO: Awake, alert, and oriented to person, place and time. Answers questions appropriately. There were no obvious focal neurologic abnormalities. No cerebellar dysfunction. Normal steady gait. Upper and lower extremities bilaterally with strength 5 / 5, reflexes 2+.. DIFFERENTIAL DIAGNOSIS: In no particular order, including but not limited to, fracture, sprain/strain, cauda equina, spinal infectious etiology. - Personal History Current Tetanus/Diphtheria Vaccine: Yes Current Tetanus Diphtheria and Acellular Pertussis (TDAP): Yes Tetanus Vaccine Date: 2013 - Medical/Surgical History Hx Asthma: No Hx Chronic Respiratory Disease: No Hx Diabetes: No Hx Cardiac Disease: No Hx Renal Disease: No Hx Cirrhosis: No Hx Alcoholism: No Hx HIV/AIDS: No Hx Splenectomy or Spleen Trauma: No Other PMH: Cauda equina syndrome, hysterectomy, bowel bladder rectal prolapse repair, appy, tonsillectomy, , anxiety, migraines, oophorectomy - Social History Smoking Status: Light smoker Constitutional: Initial Vital Signs Temperature (C) 37.6 C 04/22/18 17:58 Heart Rate 111 H 04/22/18 17:58 Respiratory Rate 16 04/22/18 17:58 Blood Pressure 119/95 H 04/22/18 17:58 O2 Sat (%) 98 04/22/18 17:58 O2 Delivery Mode Room Air Allergies/Adverse Reactions: Sulfa (Sulfonamide Antibiotics) Allergy (Severe, Verified 04/22/18 17:56) Other-Enter Comments codeine Allergy (Intermediate, Verified 04/22/18 17:56) Rash morphine Allergy (Intermediate, Verified 04/22/18 17:56) Rash dexamethasone [From Decadron] Allergy (Verified 04/22/18 17:56) Home Medications: Medication Instructions Recorded Escitalopram Oxalate [Lexapro] 20 mg PO HS 02/14/16 QUEtiapine FUMARATE [Seroquel 100 100 mg PO HS 11/15/16 mg (*)] Diazepam [Valium 5 MG (*)] 5 mg PO BID@09,14 07/19/16 HYDROmorphone HCL [Dilaudid 4 mg 4 mg PO Q6HRS 07/24/17 (*)] morphINE SR [Ms Contin/Oramorph 15 15 mg PO BID 07/24/17 mg (*)] Acet/Caffeine/Buta Fioricet 1 each PO DAILY PRN 07/25/17 [Fioricet (*)] Acetaminophen [Tylenol 325mg (*)] 325 mg PO DAILY PRN 07/25/17 Ibuprofen [Motrin (*)] 200 mg PO DAILY PRN 07/25/17 Multivitamins [Multivitamin (*)] 1 each PO DAILY 07/25/17 Omeprazole 20 mg PO DAILY 07/25/17 Topiramate [Topamax 100MG (*)] 100 mg PO HS 07/25/17 oxyCODONE IR [Oxycodone Ir (*)] 5 - 10 mg PO Q6 PRN #20 tab 09/24/17 oxyCODONE IR [Oxycodone Ir (*)] 1 - 2 tab PO Q6 PRN #20 tab 09/25/17 Medical Decision Making ED Course/Re-evaluation: 8:15 p.m.: Re-evaluation. Patient complaining of continued pain after ketamine 20 mg IV x2, Dilaudid 1 mg IV x1, Valium IV x 1. Previously recommended Decadron which she declines noting that makes her feel "like bugs are crawling out of my skin". She does agree to oral prednisone. Will administer dose of IV Haldol 8:30 p.m.: Patient remains complaining of significant amount discomfort, unresponsive in unchanged after multiple rounds of medications. Will plan on admission. Spoke with hospitalist Dr. Landon Atwood who will admit patient. At this time I do not think that emergent MRI is indicated from the emergency department given her intact neurologic status and lack of incontinence or retention or red flag signs or symptoms however this may be indicated on inpatient basis to be decided by the admitting physician.. Care of patient under supervision of secondary supervising physician Dr Snow Blancas with whom I discussed case. - Data Points Laboratory Results: Laboratory Results 04/22/18 19:10 04/22/18 19:10 04/22/18 04/22/18 04/22/18 19:10 19:10 19:10 WBC 9.80 10^3/uL H 10^3/uL (3.80-9.50) RBC 4.94 10^6/uL 10^6/uL (4.18-5.33) Hgb 13.2 g/dL g/dL (12.6-16.3) Hct 39.5 % % (38.0-47.0) MCV 80.0 fL L fL (81.5-99.8) MCH 26.7 pg L pg (27.9-34.1) MCHC 33.4 g/dL g/dL (32.4-36.7) RDW 13.1 % % (11.5-15.2) Plt Count 207 10^3/uL 10^3/uL (150-400) MPV 8.9 fL fL (8.7-11.7) Neut % (Auto) 79.8 % H % (39.3-74.2) Lymph % (Auto) 15.0 % % (15.0-45.0) [place] % (Auto) 4.9 % % (4.5-13.0) Eos % (Auto) 0.0 % L % (0.6-7.6) Baso % (Auto) 0.1 % L % (0.3-1.7) Nucleat RBC Rel Count 0.0 % % (0.0-0.2) Absolute Neuts (auto) 7.82 10^3/uL H 10^3/uL (1.70-6.50) Absolute Lymphs (auto) 1.47 10^3/uL 10^3/uL (1.00-3.00) Absolute Monos (auto) 0.48 10^3/uL 10^3/uL (0.30-0.80) Absolute Eos (auto) 0.00 10^3/uL L 10^3/uL (0.03-0.40) Absolute Basos (auto) 0.01 10^3/uL L 10^3/uL (0.02-0.10) Absolute Nucleated RBC 0.00 10^3/uL 10^3/uL (0-0.01) Immature Gran % 0.2 % % (0.0-1.1) Immature Gran # 0.02 10^3/uL 10^3/uL (0.00-0.10) Sodium 138 mEq/L mEq/L (135-145) Potassium 3.7 mEq/L mEq/L (3.5-5.2) Chloride 110 mEq/L mEq/L (97-110) Carbon Dioxide 19 mEq/l L mEq/l (22-31) Anion Gap 9 mEq/L mEq/L (6-14) BUN 13 mg/dL mg/dL (7-23) Creatinine 0.7 mg/dL mg/dL (0.6-1.0) Estimated GFR > 60 Glucose 115 mg/dL H mg/dL (70-100) Calcium 8.7 mg/dL mg/dL (8.5-10.4) Beta HCG, Qual NEGATIVE Medications Given: Discontinued Medications Diazepam (Valium) 5 mg IVP EDNOW ONE Stop: 04/22/18 18:52 Last Admin: 04/22/18 19:18 Dose: 5 mg Haloperidol Lactate (Haldol Injection) 2.5 mg IVP EDNOW ONE Stop: 04/22/18 18:50 Last Admin: 04/22/18 19:30 Dose: Not Given Haloperidol Lactate (Haldol Injection) 2.5 mg IVP EDNOW ONE Stop: 04/22/18 20:14 Last Admin: 04/22/18 20:20 Dose: 2.5 mg Hydromorphone HCl (Dilaudid) 1 mg IVP EDNOW ONE Stop: 04/22/18 19:42 Last Admin: 04/22/18 19:47 Dose: 1 mg Ketamine HCl (Ketamine) 20 mg IVP EDNOW ONE Stop: 04/22/18 18:53 Last Admin: 04/22/18 19:18 Dose: 20 mg Ketamine HCl (Ketamine) 20 mg IVP EDNOW ONE Stop: 04/22/18 19:42 Last Admin: 04/22/18 19:49 Dose: 20 mg Prednisone (Prednisone) 60 mg PO EDNOW ONE Stop: 04/22/18 20:15 Last Admin: 04/22/18 20:20 Dose: 60 mg Departure - Departure Disposition: [facility] Clinical Impression: Intractable low back pain Condition: Fair
[2018-04-22 19:15] LABS: PLATELET COUNT 207 10^3/uL (150-400)
[2018-04-22] MEDS ORDERED: HYDROmorphONE/DILAUDID 1 MG/ML INJ IVP ONE (19:41)
[2018-04-22] MEDS ORDERED: predniSONE 20 MG TAB PO ONE (20:14)
--- NOTE | 2018-04-22 21:22 | PDGENHP ---
History and Physical - Chief Complaint Low back pain - History of Present Illness This is a 42-year-old female with history of chronic low back pain followed by [facility] in the [place] [facility] who was seen at [facility] on 04/03/2018 at which time a MRI of the back was done and she was sent home. Since her emergency room visit she has had worsening pain in her low back. The pain is described as a 10/10 sharp stabbing pain in her low back that radiates down both of her legs. The pain is worse with sitting or standing. Her only position of comfort is lying down on her back. Her home opioid pain medications are not working. She denies any bowel or bladder incontinence. She does report having a fall while at [employer] last Saturday which she thinks may have triggered her exacerbation of pain. History Information - Allergies/Home Medication List Allergies/Adverse Reactions: Sulfa (Sulfonamide Antibiotics) Allergy (Severe, Verified 04/22/18 17:56) Other-Enter Comments codeine Allergy (Intermediate, Verified 04/22/18 17:56) Rash morphine Allergy (Intermediate, Verified 04/22/18 17:56) Rash dexamethasone [From Decadron] Allergy (Verified 04/22/18 17:56) Home Medications: Escitalopram Oxalate [Lexapro] 20 mg PO HS 02/14/16 [Last Taken 07/23/17] QUEtiapine FUMARATE [Seroquel 100 mg (*)] 100 mg PO HS 02/14/16 [Last Taken ] Diazepam [Valium 5 MG (*)] 5 mg PO BID@09,14 07/19/16 [Last Taken 07/24/17 14:00 ] HYDROmorphone HCL [Dilaudid 4 mg (*)] 4 mg PO Q6HRS 07/24/17 [Last Taken ] morphINE SR [Ms Contin/Oramorph 15 mg (*)] 15 mg PO BID 07/24/17 [Last Taken 09:00] Acet/Caffeine/Buta Fioricet [Fioricet (*)] 1 each PO DAILY PRN 07/25/17 [Last Taken Unknown] Acetaminophen [Tylenol 325mg (*)] 325 mg PO DAILY PRN 07/25/17 [Last Taken Unknown] Ibuprofen [Motrin (*)] 200 mg PO DAILY PRN 07/25/17 [Last Taken Unknown] Multivitamins [Multivitamin (*)] 1 each PO DAILY 07/25/17 [Last Taken Unknown] Omeprazole 20 mg PO DAILY 07/25/17 [Last Taken 07/24/17] Topiramate [Topamax 100MG (*)] 100 mg PO HS 07/25/17 [Last Taken 07/23/17] I have personally reviewed and updated: family history, medical history, social history, surgical history - Past Medical History arthritis Additional medical history: Chronic pain - Surgical History Reports: spinal surgery - Family History Positive for: cancer - Social History Smoking Status: Light smoker Review of Systems Review of Systems: ROS: 10pt was reviewed & negative except for what was stated in HPI & below Physical Exam Physical Exam: Temp Pulse Resp BP Pulse Ox 36.9 C 99 20 115/66 96 04/22/18 21:12 04/22/18 21:12 04/22/18 21:12 04/22/18 21:12 04/22/18 21:12 Constitutional: uncomfortable Eyes: PERRL, anicteric sclera, EOMI Ears, Nose, Mouth, Throat: moist mucous membranes, hearing normal, ears appear normal, no oral mucosal ulcers Cardiovascular: regular rate and rhythym, no murmur, rub, or gallop, No edema Respiratory: no respiratory distress, no rales or rhonchi, clear to auscultation Gastrointestinal: normoactive bowel sounds, soft, non-tender abdomen, no palpable masses Genitourinary: no bladder fullness Skin: warm, normal color, no rashes or abrasions, no fluctuance, no induration, No mottled Neurologic: AAOx3, CN II-XII Intact, other (DTR 3-right patella 2+ left patellar ), No facial droop Psychiatric: interacting appropriately Lab Data & Imaging Review 04/22/18 19:10 04/22/18 19:10 WBC 9.80 10^3/uL (3.80-9.50) H 04/22/18 19:10 RBC 4.94 10^6/uL (4.18-5.33) 04/22/18 19:10 Hgb 13.2 g/dL (12.6-16.3) 04/22/18 19:10 Hct 39.5 % (38.0-47.0) 04/22/18 19:10 MCV 80.0 fL (81.5-99.8) L 04/22/18 19:10 MCH 26.7 pg (27.9-34.1) L 04/22/18 19:10 MCHC 33.4 g/dL (32.4-36.7) 04/22/18 19:10 RDW 13.1 % (11.5-15.2) 04/22/18 19:10 Plt Count 207 10^3/uL (150-400) 04/22/18 19:10 MPV 8.9 fL (8.7-11.7) 04/22/18 19:10 Neut % (Auto) 79.8 % (39.3-74.2) H 04/22/18 19:10 Lymph % (Auto) 15.0 % (15.0-45.0) 04/22/18 19:10 Grant % (Auto) 4.9 % (4.5-13.0) 04/22/18 19:10 Eos % (Auto) 0.0 % (0.6-7.6) L 04/22/18 19:10 Baso % (Auto) 0.1 % (0.3-1.7) L 04/22/18 19:10 Nucleat RBC Rel Count 0.0 % (0.0-0.2) 04/22/18 19:10 Absolute Neuts (auto) 7.82 10^3/uL (1.70-6.50) H 04/22/18 19:10 Absolute Lymphs (auto) 1.47 10^3/uL (1.00-3.00) 04/22/18 19:10 Absolute Monos (auto) 0.48 10^3/uL (0.30-0.80) 04/22/18 19:10 Absolute Eos (auto) 0.00 10^3/uL (0.03-0.40) L 04/22/18 19:10 Absolute Basos (auto) 0.01 10^3/uL (0.02-0.10) L 04/22/18 19:10 Absolute Nucleated RBC 0.00 10^3/uL (0-0.01) 04/22/18 19:10 Immature Gran % 0.2 % (0.0-1.1) 04/22/18 19:10 Immature Gran # 0.02 10^3/uL (0.00-0.10) 04/22/18 19:10 Sodium 138 mEq/L (135-145) 04/22/18 19:10 Potassium 3.7 mEq/L (3.5-5.2) 04/22/18 19:10 Chloride 110 mEq/L (97-110) 04/22/18 19:10 Carbon Dioxide 19 mEq/l (22-31) L 04/22/18 19:10 Anion Gap 9 mEq/L (6-14) 04/22/18 19:10 BUN 13 mg/dL (7-23) 04/22/18 19:10 Creatinine 0.7 mg/dL (0.6-1.0) 04/22/18 19:10 Estimated GFR > 60 04/22/18 19:10 Glucose 115 mg/dL (70-100) H 04/22/18 19:10 Calcium 8.7 mg/dL (8.5-10.4) 04/22/18 19:10 Beta HCG, Qual NEGATIVE 04/22/18 19:10 Imaging Review: lumbar mri 04/03/18 Impression: 1. Stable postsurgical changes at L4-L5 and L5-S1, with laminectomy. No evidence for abnormal enhancement or epidural abscess. 2. Mild degenerative disk disease at L4-L5 and L5-S1, with a small central protrusion decreased in size at L4-L5 and a small right parasagittal protrusion at L5-S1 causing no significant encroachment , as above. Visualized and Interpreted Chest x-ray results: Yes Assessment & Plan Assessment: 1. Acute on chronic low back pain 2. Opioid dependence 3. History of cauda equina syndrome Plan: -place in observation -treat breakthrough pain with p.r.n. Oral Dilaudid -consult Neurosurgery in the morning -PT/OT consult Patient is high risk for VTE and will place on Lovenox for DVT prophylaxis
[2018-04-22] MEDS ORDERED: ONDANSETRON 4 MG/2 ML VIAL IVP PRN (21:26)
[2018-04-22] MEDS ORDERED: IBUPROFEN 200 MG TAB PO PRN (21:28)
[2018-04-22] MEDS ORDERED: MAGNESIUM HYDROXIDE 30 ML UDCUP PO PRN (21:28)
[2018-04-22] MEDS ORDERED: BISACODYL 10 MG SUPP PR PRN (21:28)
[2018-04-22] MEDS ORDERED: POLYETHYLENE GLYCOL 3350 17 GM PKT PO PRN (21:28)
[2018-04-22] MEDS ORDERED: ACETAMINOPHEN 325 MG TAB PO PRN (21:28)
[2018-04-22] MEDS ORDERED: LACTULOSE 20 GM/30 ML UDCUP PO PRN (21:28)
[2018-04-22] MEDS: morphINE SR 15 MG TAB PO SCH (22:43)
[2018-04-22] MEDS: ESCITALOPRAM OXALATE 10 MG TAB PO SCH (22:44)
[2018-04-22] MEDS: TOPIRAMATE 100 MG TAB PO SCH (22:44)
[2018-04-22] MEDS: QUEtiapine FUMARATE 100 MG TAB PO SCH (22:44)
[2018-04-22] MEDS ORDERED: DIAZEPAM 5 MG TAB PO ONE (23:15)
[2018-04-23] MEDS: HYDROmorphONE/DILAUDID 4 MG TAB PO PRN ×5 (00:13→23:12)
--- NOTE | 2018-04-23 08:49 | HOSPPROG ---
Hospitalist Progress Note Assessment/Plan: This is a 42-year-old female with history of chronic low back pain followed by [facility] in the [place] [facility] who was seen at [facility] on 04/03/2018 at which time a MRI of the back was done and she was sent home. Since her emergency room visit she has had worsening pain in her low back. Her only position of comfort is lying in bed. First encounter, chart reviewed. *acute on chronic back pain -recently had an MRI on 04/03 -spoke w Neurosurgery and they will see today *Opioid dependence -resumed her home medications *History of cauda equina syndrome -not an issue on this admission. *plan: will discuss w neurosurgery Subjective: Gabriella is tearful during my interview. Objective: Vital Signs Temp Pulse Resp BP Pulse Ox 36.9 C 83 12 109/66 97 04/23/18 08:28 04/23/18 08:28 04/23/18 08:28 04/23/18 08:28 04/23/18 08:28 04/22/18 04/23/18 04/24/18 05:59 05:59 05:59 Intake Total 250 Output Total 0 Balance 250 - Physical Exam Constitutional: uncomfortable, other (tearful) Eyes: PERRL Ears, Nose, Mouth, Throat: hearing normal Cardiovascular: regular rate and rhythym Gastrointestinal: normoactive bowel sounds Skin: warm Musculoskeletal: generalized weakness Neurologic: AAOx3 Psychiatric: anxious ICD10 Worksheet Patient Problems: Problems Problem Status Onset Intractable low back pain Acute Acute exacerbation of chronic low back pain Acute Herniation of intervertebral disc between L4 and L5 Acute Intractable neuropathic pain of lumbosacral origin Acute
[2018-04-23] MEDS ORDERED: DIAZEPAM 5 MG TAB PO PRN (09:05)
--- NOTE | 2018-04-23 09:14 | ASMTCMCOM ---
CM Note CM Note Notes: Pt is a 42 y/o female admitted for lower back pain. Pt has a hx of chronic low back pain followed by [facility] in the [place] [facility]. Therapies have been ordered and awaiting recommendations. Needs are TBD at this time. CM to follow. Plan: TBD Date Signed: 04/23/2018 09:13 AM Electronically Signed By:MARTHA Selby
[2018-04-23] MEDS: ENOXAPARIN 40 MG/0.4 ML SYR SC SCH (09:54)
[2018-04-23] MEDS: SENNOSIDES/DOCUSATE SODIUM TAB PO SCH ×2 (09:57→21:28)
[2018-04-23] MEDS: MULTIVITAMINS 1 EACH TAB PO SCH (09:57)
[2018-04-23] MEDS: morphINE SR 15 MG TAB PO SCH ×2 (09:57→21:29)
[2018-04-23] MEDS: DIAZEPAM 5 MG TAB PO PRN ×2 (10:07→16:11)
[2018-04-23] MEDS: oxyCODONE IR 15 MG TAB PO SCH ×3 (12:26→21:29)
[2018-04-23] MEDS: METHOCARBAMOL 750 MG TAB PO SCH ×3 (12:26→21:27)
--- NOTE | 2018-04-23 13:27 | GCON ---
NEUROSURGICAL CONSULTATION CHIEF COMPLAINT: Low back pain. HISTORY OF PRESENT ILLNESS: Ms. Justice is a 42-year-old female known to our practice. She previously underwent an L4-5 and L5-S1 laminectomy with Dr. Jefferson Youssef in approximately 2013. She has followed up with Dr. Franco thereafter for her ongoing back pain. Over the last several days she described worsening pain in her low back that is worse with standing or sitting. This is associated with pain in her buttocks and hamstrings bilaterally. She feels that her legs are generally weak and she has some paresthesias in her legs also. Her balance has been off, but she denies any bowel and bladder problems. She reports 10/10 pain with 90% low back pain and 10% leg pain. She has tried pain medications and physical therapy with no significant improvement. PAST MEDICAL HISTORY: 1. Chronic pain. 2. Osteoarthritis. 3. Obesity. MEDICATIONS: Prior to admission are, Lexapro, Seroquel, Dilaudid, MS Contin, Fioricet, Tylenol, Motrin, multivitamin, omeprazole, and Topamax. SURGICAL HISTORY: Patient has a history of L4-5, L5-S1 laminectomy in 2013. ALLERGIES: Sulfa, codeine, morphine, and dexamethasone. FAMILY HISTORY: Patient has no family history of spine problems. SOCIAL HISTORY: Patient is and has 5 children. She uses E-cigarettes and denies drinking alcohol. She rarely uses marijuana. REVIEW OF SYSTEMS: Negative. PHYSICAL EXAM: GENERAL: Patient is a 42-year-old female lying in bed in a moderate amount of distress. HEAD, EYES, EARS, NOSE, THROAT: Negative to drainage. EXTREMITIES: Felicity, warm and dry. NEUROLOGIC: Patient is awake, alert, oriented x4. Pupils equal, round, reactive to light. Extraocular motions are intact. There is no evidence of facial droop. Tongue and uvula are midline. Spinal and accessory muscles are intact. Her motor strength is physiologic at 5/5 in her arms and legs. Her sensation is grossly intact to light touch in arms and legs. Deep tendon reflexes are 1/4 throughout. There is a negative Selwyn's with no clonus. DIAGNOSTIC STUDIES: An MRI of the lumbar spine from [facility] on 04/03/2018, shows preservation of the sagittal alignment with postoperative changes related to her L4-5 and L5-S1 laminectomy. There is a central broad- based L4-5 disk herniation with moderate facet arthropathy. At L5-S1, there is moderate facet arthropathy, but no evidence of significant central canal stenosis. IMPRESSION: This is a 42-year-old female with low back pain and bilateral lower extremity radicular symptoms, who has a history of a previous L4-5, L5-S1 laminectomy with a large central L4-5 disk herniation. She has ongoing symptoms despite a course of conservative care. PLAN: All the above discussed in detail with the patient. The patient was seen and examined with Dr. Hampton present. In light of her laminectomy, she may have some evidence of translational listhesis at the L4-5 and L5-S1 level, so we would like to obtain some plain films of the lumbar spine with flexion-extension views to evaluate for translational listhesis instability. It was discussed with the patient that she does not have any red-flag symptoms, so we have time to work on pain management. If she fails to improve with conservative care, then she would likely require an L4-5 and L5-S1 transforaminal lumbar interbody fusion. We suggest that she maximize her medical management. At this point in time, we will get the flexion-extension plain films of her lumbar spine and make further treatment recommendations upon completion of her imaging. /[id number]/MODL MTDD
[2018-04-23] MEDS: DICYCLOMINE 20 MG TAB PO PRN (16:10)
[2018-04-23] MEDS ORDERED: KETOROLAC 15 MG/1 ML SDV IVP ONE (16:43)
[2018-04-23] MEDS: KETOROLAC 15 MG/1 ML SDV IVP SCH ×2 (18:58→23:10)
[2018-04-23] MEDS: DIAZEPAM 5 MG/ML 1 ML SYR IVP PRN (19:11)
[2018-04-23] MEDS: ESCITALOPRAM OXALATE 10 MG TAB PO SCH (21:28)
[2018-04-23] MEDS: TOPIRAMATE 100 MG TAB PO SCH (21:29)
[2018-04-23] MEDS: GABAPENTIN 100 MG CAP PO SCH (21:29)
[2018-04-23] MEDS: QUEtiapine FUMARATE 100 MG TAB PO SCH (21:29)
[2018-04-24] MEDS: DIAZEPAM 5 MG/ML 1 ML SYR IVP PRN ×4 (01:21→20:38)
[2018-04-24] MEDS: HYDROmorphONE/DILAUDID 4 MG TAB PO PRN ×5 (04:24→20:37)
[2018-04-24] MEDS: KETOROLAC 15 MG/1 ML SDV IVP SCH ×4 (05:27→23:14)
[2018-04-24] MEDS: oxyCODONE IR 15 MG TAB PO SCH ×4 (05:28→20:37)
--- NOTE | 2018-04-24 07:19 | SOAPPROG ---
REYES Progress Note Assessment/Plan: Assessment: 42 yo F with low back pain that is likely related to her L4/5, L5/ S1 DJD. Plan: neuro: stable no indication of surgery at this point in time, suggest continued pain management and then DC home patient would benefit from outpatient Physical Therapy to focus on core strengthening flex/ex x-rays with no evidence of instability dc when pain controlled follow up with Dr Franco in 2- 4 weeks after completion of outpatient EMG will sign off please call with neuro changes 04/24/18 07:16 Subjective: continued back pain, minimal leg pain, no weakness. Objective: Vital Signs Temp Pulse Resp BP Pulse Ox 37.2 C 78 14 114/72 98 04/23/18 20:28 04/23/18 23:13 04/23/18 23:13 04/23/18 20:28 04/23/18 23:13 Laboratory Results 04/24/18 04:20 04/23/18 04/24/18 04/25/18 05:59 05:59 05:59 Intake Total 250 1500 Output Total 0 750 Balance 250 750 AAOx4, +FC PERRL, EOMI, no facial droop 5/5 + light touch ICD10 Worksheet Patient Problems: Problems Problem Status Onset Intractable low back pain Acute Acute exacerbation of chronic low back pain Acute Herniation of intervertebral disc between L4 and L5 Acute Intractable neuropathic pain of lumbosacral origin Acute
[2018-04-24] MEDS ORDERED: methylPREDNISolone SOD SUCC 40 MG/ML VIAL IVP ONE (08:14)
[2018-04-24] MEDS: morphINE SR 15 MG TAB PO SCH ×2 (08:29→20:37)
[2018-04-24] MEDS: SENNOSIDES/DOCUSATE SODIUM TAB PO SCH ×2 (08:29→20:36)
[2018-04-24] MEDS: MULTIVITAMINS 1 EACH TAB PO SCH (08:29)
[2018-04-24] MEDS: METHOCARBAMOL 750 MG TAB PO SCH ×3 (08:29→23:13)
[2018-04-24] MEDS: GABAPENTIN 100 MG CAP PO SCH ×3 (08:29→23:14)
[2018-04-24] MEDS: ENOXAPARIN 40 MG/0.4 ML SYR SC SCH (08:35)
--- NOTE | 2018-04-24 13:38 | PDMN ---
Medical Necessity Medical necessity: Change to inpt as of 04/23/18 @ 17:10, per MD order and [facility]- [facility]. Back Pain, meets inpt criteria w/severe pain requiring inpt management, IV Dilaudid roughly every 3-4 hrs in addition to IV Toradol and PO pain meds, IV valium for spasms, pt unable to ambulate due to pain likely r/t L4/5, L5/S1 DJD , neurosurg consult- no surg indicated at this time but requires ongoing management of acute back pain, anticipate>2MN for this.
--- NOTE | 2018-04-24 14:31 | HOSPPROG ---
Hospitalist Progress Note Assessment/Plan: # low back pain - s/p L4/5 L5/S1 laminectomy and cauda equina syndrome - she is still in severe pain (although slightly improved) - check MRI L-spine today - check L hip XR given hip pain with rotation - she is on significant pain control - cont ms contin 15 bid, dialudid PO, oxy PO, valium, robaxin, toradol 30 iv, lexa, lexapro - she received one dose today of solu-medrol without clear improvement - i will defer further steroids at this point Subjective: ongoing severe low back pain; possibly some improvement Objective: Vital Signs Temp Pulse Resp BP Pulse Ox 37.0 C 89 16 103/65 98 04/24/18 08:22 04/24/18 08:22 04/24/18 08:22 04/24/18 08:22 04/24/18 08:22 Laboratory Results 04/24/18 04:20 04/23/18 04/24/18 04/25/18 05:59 05:59 05:59 Intake Total 1000 Output Total 750 300 Balance 250 -300 chart reviewed MRI from 04/03 reviewed - Physical Exam Constitutional: no apparent distress, appears nourished Cardiovascular: regular rate and rhythym, no murmur, rub, or gallop Respiratory: no respiratory distress, no rales or rhonchi, clear to auscultation Gastrointestinal: normoactive bowel sounds, soft, non-tender abdomen, no palpable masses ICD10 Worksheet Patient Problems: Problems Problem Status Onset Intractable low back pain Acute Acute exacerbation of chronic low back pain Acute Herniation of intervertebral disc between L4 and L5 Acute Intractable neuropathic pain of lumbosacral origin Acute
[2018-04-24] MEDS ORDERED: LORazepam 1 MG TAB PO ONE (14:55)
[2018-04-24] MEDS: METOCLOPRAMIDE 10 MG/2 ML VIAL IVP PRN (18:13)
[2018-04-24] MEDS: ESCITALOPRAM OXALATE 10 MG TAB PO SCH (20:36)
[2018-04-24] MEDS: QUEtiapine FUMARATE 100 MG TAB PO SCH (20:37)
[2018-04-24] MEDS: TOPIRAMATE 100 MG TAB PO SCH (20:37)
[2018-04-24] MEDS ORDERED: TPN 1 EA BAG IV SCH (21:00)
[2018-04-25] MEDS: KETOROLAC 15 MG/1 ML SDV IVP SCH ×2 (05:10→11:20)
[2018-04-25] MEDS: oxyCODONE IR 15 MG TAB PO SCH ×4 (05:11→21:10)
[2018-04-25] MEDS: DIAZEPAM 5 MG/ML 1 ML SYR IVP PRN (07:28)
[2018-04-25] MEDS: MULTIVITAMINS 1 EACH TAB PO SCH (09:09)
[2018-04-25] MEDS: GABAPENTIN 100 MG CAP PO SCH ×3 (09:09→21:11)
[2018-04-25] MEDS: METHOCARBAMOL 750 MG TAB PO SCH ×3 (09:09→21:11)
[2018-04-25] MEDS: ENOXAPARIN 40 MG/0.4 ML SYR SC SCH (09:09)
[2018-04-25] MEDS: SENNOSIDES/DOCUSATE SODIUM TAB PO SCH ×2 (09:09→21:13)
[2018-04-25] MEDS: morphINE SR 15 MG TAB PO SCH ×2 (09:09→21:10)
[2018-04-25] MEDS: HYDROmorphONE/DILAUDID 4 MG TAB PO PRN ×2 (09:21→13:29)
--- NOTE | 2018-04-25 09:34 | ASMTCMCOM ---
CM Note CM Note Notes: CM met with PT following her evaluation with pt. PT recommending HH PT vs SNF. Pt can be "safe" at home, but it is unclear whether family can meet her needs or whether she needs to have her pain under increased control prior to returning home. CM will speak to family and pt today. D/C Plan: HH PT vs SNF Date Signed: 04/25/2018 09:34 AM Electronically Signed By:Lainey Obrien
--- NOTE | 2018-04-25 10:10 | HOSPPROG ---
Hospitalist Progress Note Assessment/Plan: DIAGNOSES: # low back pain - s/p L4/5 L5/S1 laminectomy and cauda equina syndrome - spasms have decreased today, however still with severe pain with attempted movement. Only able to walk as far as her room door with walker and assist, unable to put any clothing on or off - she is on significant pain control - cont ms contin 15 bid, dialudid PO, oxy PO, valium, robaxin, toradol 30 iv, lexa, lexapro; using cold packs as well - she received one dose of solu-medrol without clear improvement -defer further steroids at this point PLANS: * Continue current conservative treatment strategies * Increase activity as able * Currently in no other medications indicated * I agree that there is nothing surgical in about her scenario * She will need ongoing physical therapy here and at home, emphasis on core muscle strength and overall fitness. Talked about options including chiropractic, massage, acupuncture Seen by me today on hospitals rounds as well as multidisciplinary rounds SUBJECTIVE: Still with severe pain with any attempted movement. With PT and a walker today with able to walk only from her bed to the room door. Unable to put on any clothing or off. No paresthesias, no bowel or bladder issues Complains of some degree of anxiety and fear related to her symptoms, mostly worried about how she will take care of her kids at home (, able and willing) OBJECTIVE Vitals reviewed: Overall stable [facility], my review: Exam: alert oriented, mildly anxious at present Significant pain with attempted movement from lying supine in the bed skin warm dry color ok resps not labored lungs clear BSs heart regular abd soft nondistended nontender, bowel sounds present iv site ok I reviewed her MRI scans and agree that there is no concerning nerve impingement , no fractures, nothing else that would be really treatable by surgery injection or other procedure related therapies Objective: Vital Signs Temp Pulse Resp BP Pulse Ox 37.2 C 82 16 102/62 96 04/25/18 07:25 04/25/18 07:25 04/25/18 07:25 04/25/18 07:25 04/25/18 07:25 Laboratory Results 04/24/18 04:20 04/24/18 04/25/18 04/26/18 06:59 06:59 06:59 Intake Total 1000 3500 Output Total 750 300 Balance 250 3200 ICD10 Worksheet Patient Problems: Problems Problem Status Onset Intractable low back pain Acute Acute exacerbation of chronic low back pain Acute Herniation of intervertebral disc between L4 and L5 Acute Intractable neuropathic pain of lumbosacral origin Acute
[2018-04-25] MEDS: LIDOCAINE 4%/MENTHOL 1% PATCH TD SCH (11:26)
[2018-04-25] MEDS: DIAZEPAM 5 MG TAB PO PRN (13:29)
--- NOTE | 2018-04-25 14:10 | WOCRNPDOC ---
JOY Advanced Assessment Note - Skin Integrity Problem, Advanced Assess Upper Medial Back Dressing Type: Allevyn Life Dressing Description: Clean/Dry, Intact Closure Description: Not Approximated Exudate Amount: Scant Exudate Color: Reddish/Yellow Exudate Characteristic(s): Serosanguinous Integumentary Issue Intervention: Visualized Under Dressing Maribell Wound Tissue: Intact Wound Bed Color: [facility] Wound Bed Constitution: Red/[facility] - Non Granular Tissue Wound Edges: Attached, Well Defined Site Measurement - Head-to-Toe Length X Width X Depth (cm): 6x5x0.1 Skin Integrity Problem Comment: Patient able to sit forward in bed while RN Aly pulled back Allevyn. Patient endorses that she had a small wound to this area and has continued to pick at it, creating a larger wound. No signs of pressure as patient easily moves around for my evaluation. Recommend continued coverage of this area with a dressing to prevent further picking. Wound care will not continue to round. Right Hip Dressing Type: Open to Air Closure Description: Not Approximated Exudate Amount: None Integumentary Issue Intervention: Dressing Applied, Dressing Initialed & Dated, Hydrogel Applied Maribell Wound Tissue: Ecchymotic, Intact Wound Bed Color: Brown Wound Bed Constitution: Scab Wound Edges: Attached, Well Defined Site Measurement - Head-to-Toe Length X Width X Depth (cm): [id number] Skin Integrity Problem Comment: Patient confirms that this area is also a result of her "picking". Recommend covering this site to discourage patient picking at the area. Patient in agreement. Hydrogel applied to wound bed and covered with Allevyn. Wound care will not continue to round on this wound.
--- NOTE | 2018-04-25 14:13 | ASMTCMCOM ---
CM Note CM Note Notes: CM spoke with pt and discussed PT's recommendations for HHC vs SNF.. Pt believes that when she does go home she will be expected to resume all of her former responsibilities and will not be safe if she hasn't gone through additional rehab and is feeling better. She is considering rehab and asked if there was a place close to home, which is in [place]. She expressed concerns over the finances; a referral will be sent in to rehab facilities with an inquiry re co-pay. Pt became quite tearful, reported being scared and overall appeared overwhelmed emotionally, "SNF are where people go to ". She was encouraged to process this recommendation today and to discuss it with her . Referrals sent to SNF/Rehab. D/C Plan: HHC vs SNF/Rehab Date Signed: 04/25/2018 02:13 PM Electronically Signed By:Lainey Obrien
[2018-04-25] MEDS: NAPROXEN SODIUM 220 MG TAB PO PRN (17:15)
--- NOTE | 2018-04-25 20:52 | ASMTCMCOM ---
CM Note CM Note Notes: [facility] reported pt's financial portion as $100 a day with a required $700 deposit, awaiting [facility]. Gave pt info on both facilities. She will be showing them to her ruba. Longer discussion with pt suggests that there may be other/emotional issues effecting her decision making. D/C Plan: HH vs SNF/Rehab Date Signed: 04/25/2018 05:01 PM Electronically Signed By:Lainey Obrien
[2018-04-25] MEDS: ESCITALOPRAM OXALATE 10 MG TAB PO SCH (21:10)
[2018-04-25] MEDS: QUEtiapine FUMARATE 100 MG TAB PO SCH (21:10)
[2018-04-25] MEDS: TOPIRAMATE 100 MG TAB PO SCH (21:11)
[2018-04-25] MEDS: PATCH REMOVAL 1 EA PATCH TD SCH (21:11)
[2018-04-26] MEDS: oxyCODONE IR 15 MG TAB PO SCH ×4 (04:59→21:44)
[2018-04-26] MEDS: HYDROmorphONE/DILAUDID 4 MG TAB PO PRN ×3 (06:07→19:29)
[2018-04-26] MEDS: DIAZEPAM 5 MG TAB PO PRN ×3 (06:08→22:56)
[2018-04-26] MEDS: METOCLOPRAMIDE 10 MG/2 ML VIAL IVP PRN ×2 (08:20→16:31)
[2018-04-26] MEDS: METHOCARBAMOL 750 MG TAB PO SCH ×3 (08:20→21:44)
[2018-04-26] MEDS: SENNOSIDES/DOCUSATE SODIUM TAB PO SCH ×2 (08:21→21:45)
[2018-04-26] MEDS: GABAPENTIN 100 MG CAP PO SCH ×2 (08:21→15:30)
[2018-04-26] MEDS: NAPROXEN SODIUM 220 MG TAB PO PRN (08:21)
[2018-04-26] MEDS: morphINE SR 15 MG TAB PO SCH ×2 (08:22→21:44)
[2018-04-26] MEDS: MULTIVITAMINS 1 EACH TAB PO SCH (08:22)
[2018-04-26] MEDS: ENOXAPARIN 40 MG/0.4 ML SYR SC SCH (08:22)
[2018-04-26] MEDS: LIDOCAINE 4%/MENTHOL 1% PATCH TD SCH (08:22)
--- NOTE | 2018-04-26 14:17 | ASMTCMCOM ---
CM Note CM Note Notes: Met with patient. Gabriella is emotional. 42 year old female with intractable back pain. She feels that physically she can't go home and resume care of house and children let alone do her own ADL's unassisted. She has asked for referrals to [facility], [facility] as well as [facility]. She has 3 children at home ages 4, 10 and 13. Her is her sole support. She is tearful as she recounts losing her mon just last year. Her brother is homeless and there is no other support besides the friends through [employer] associations. I informed her about [facility] She is interested and would like to proceed with applications process. Referral sent via [employer] Will fax form to [facility]". Plan: To SNF when medically stable. Date Signed: 04/26/2018 02:17 PM Electronically Signed By:Twila Young RN
[2018-04-26] MEDS: ACET/CAFFEINE/BUTA FIORICET 1 EACH TAB PO PRN (16:29)
[2018-04-26] MEDS ORDERED: PROMETHAZINE HCL 25 MG/ML INJ IVP ONE (17:17)
--- NOTE | 2018-04-26 18:38 | HOSPPROG ---
Hospitalist Progress Note Assessment/Plan: DIAGNOSES: # low back pain - s/p L4/5 L5/S1 laminectomy and cauda equina syndrome # severe anxiety, longstanding chronic anxiety disorder along with other mental health issues, on multiple medicines at home and here -in addition to usual medicines is getting p.r.n. doses of Valium here for spasm, no help with anxiety # chronic back pain syndrome # chronic narcotic dependency with daily use of prescribed medicine at moderate doses, receiving notably higher doses here # ? Migraine, ? Stated history of migraine with stroke syndrome The patient has having quite a bit of anxiety, I think this is actually debilitating her at this point more than her back pain is. Her back pain seems to be improving in that she is able to get up and move more , walking in the hallway bit more today, doing her hair and teeth at the sink, getting some clothes on and off on her own. She goes back and forth during conversation telling me that her pain is getting worse and getting better at different points. She gets extremely anxious when we talk about medication and is clearly very fearful of me decreasing her narcotic medicines at any point, even though I did not have any mention of narcotics during our discussion. I think she also has a lot of fears about leaving the hospital, fears about going home, as well as other fears. It is hard to see where some of these fevers are coming from. I think she is under quite a lot of stress with the idea of having 5 children. At this point she is fairly adamant that she will need to go to a nursing home facility instead of going home after leaving the hospital, even though she is up and walking. I have not seen any of the family here during the day time yesterday or today and so I have not had a chance to observe her interactions with her family members PLANS: * Change her NSAIDs to scheduled instead of p.r.n. * Increase gabapentin dose * For her "migraine" will try some IV Phenergan and Solu-Medrol * Will trying get touch with her primary care physician and her pain management physician on Saturday morning * Continue physical occupational therapy * Further discussion with case management and therapists about our discharge planning ideas in efforts Will have to be very careful to not stir up her anxiety while we simultaneously appropriately and successfully navigate her through this episode of pain without having her end up on higher doses of ongoing narcotic medicine, or having trouble successfully dealing with her issues at home what ever they involve. Seen by me today on hospitals rounds as well as multidisciplinary rounds SUBJECTIVE: Notably the patient ambulated a bit better today in the hallway, some with a walker, was able to do her teeth and hair at the sink, get some clothes on off by herself. When she tells me about this and she does admit that she notices some decrease in pain doses it is still severe. However at other points of our conversation particularly will we talked about leaving the hospital or making progress on treatments, she tells me that the pain has been quite severe today and has been at times worse than yesterday or the day before. Without my mentioning any of her medicines she has an extended set of statements and please regarding narcotics, time me that she has great fear that I will try and decrease her doses and trying to reassure me that she can handle the doses as she has been taking narcotics for a long time. She also mentions that she thinks she is starting to get a migraine, and states that she has had migraines with stroke-like syndrome in the past. She is very fearful that if she has any symptoms will order CT scans which she does not want. She also is stating that she thinks that I should give her IV Benadryl for this episode as it "resets" her migraines. I asked her if she has a neurologist and she says she is "between" neurologist and does not have 1 at this time. 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: Exam: alert oriented, mildly anxious at present Significant pain with attempted movement from lying supine in the bed skin warm dry color ok resps not labored lungs clear BSs heart regular abd soft nondistended nontender, bowel sounds present iv site ok I reviewed her MRI scans and agree that there is no concerning nerve impingement , no fractures, nothing else that would be really treatable by surgery injection or other procedure related therapies Objective: Vital Signs Temp Pulse Resp BP Pulse Ox 36.6 C 102 H 16 86/53 L 95 04/26/18 16:00 04/26/18 16:00 04/26/18 16:00 04/26/18 16:00 04/26/18 16:00 Laboratory Results 04/24/18 04:20 04/25/18 04/26/18 04/27/18 06:59 06:59 06:59 Intake Total 3500 1400 Output Total 300 Balance 3200 1400 - Time Spent With Patient Time Spent with Patient: greater than 35 minutes Time Spent with Patient: Greater than 35 minutes spent on this patients care, greater than 50% of time spent counseling, educating, and coordinating care regarding the above mentioned plan. ICD10 Worksheet Patient Problems: Problems Problem Status Onset Intractable low back pain Acute Acute exacerbation of chronic low back pain Acute Herniation of intervertebral disc between L4 and L5 Acute Intractable neuropathic pain of lumbosacral origin Acute
[2018-04-26] MEDS: ESCITALOPRAM OXALATE 10 MG TAB PO SCH (21:44)
[2018-04-26] MEDS: GABAPENTIN 300 MG CAP PO SCH (21:44)
[2018-04-26] MEDS: TOPIRAMATE 100 MG TAB PO SCH (21:45)
[2018-04-26] MEDS: QUEtiapine FUMARATE 100 MG TAB PO SCH (21:45)
[2018-04-26] MEDS: PATCH REMOVAL 1 EA PATCH TD SCH (21:50)
[2018-04-27] MEDS: NAPROXEN SODIUM 220 MG TAB PO PRN (03:48)
[2018-04-27] MEDS: HYDROmorphONE/DILAUDID 4 MG TAB PO PRN ×2 (03:49→09:26)
[2018-04-27] MEDS: SENNOSIDES/DOCUSATE SODIUM TAB PO SCH ×2 (09:26→20:45)
[2018-04-27] MEDS: GABAPENTIN 300 MG CAP PO SCH ×2 (09:26→20:46)
[2018-04-27] MEDS: METHOCARBAMOL 750 MG TAB PO SCH ×3 (09:26→22:19)
[2018-04-27] MEDS: MULTIVITAMINS 1 EACH TAB PO SCH (09:26)
[2018-04-27] MEDS: morphINE SR 15 MG TAB PO SCH ×2 (09:26→20:45)
[2018-04-27] MEDS: LIDOCAINE 4%/MENTHOL 1% PATCH TD SCH (09:27)
[2018-04-27] MEDS: ENOXAPARIN 40 MG/0.4 ML SYR SC SCH (09:27)
[2018-04-27] MEDS: oxyCODONE IR 15 MG TAB PO SCH ×4 (10:09→20:45)
[2018-04-27] MEDS: DIAZEPAM 5 MG TAB PO PRN ×3 (10:09→20:44)
--- NOTE | 2018-04-27 13:37 | ASMTCMCOM ---
CM Note CM Note Notes: Patient plan of care reviewed in am rounds. 42 year old female with chronic back pain found to have her own prescription bottles in her room in addition to staff administered medications. She wishes to go to SNF due to pain but neurosurgery has signed off for now. Per physical therapy, she has needs but likely bettered served with home health care. Hopefully Flower Alvarez can see her tomorrow to assess for depression that may be in need of treatment. CM to follow. Plan: Home with [facility] Date Signed: 04/27/2018 01:37 PM Electronically Signed By:Twila Young RN
[2018-04-27] MEDS: HYDROmorphONE/DILAUDID 2 MG TAB PO PRN ×3 (13:43→22:19)
[2018-04-27] MEDS: NAPROXEN SODIUM 220 MG TAB PO SCH ×2 (16:56→22:18)
[2018-04-27] MEDS: DICYCLOMINE 20 MG TAB PO PRN (17:09)
--- NOTE | 2018-04-27 17:53 | HOSPPROG ---
Hospitalist Progress Note Assessment/Plan: DIAGNOSES: # low back pain - s/p L4/5 L5/S1 laminectomy and cauda equina syndrome # severe anxiety, longstanding chronic anxiety disorder along with other mental health issues, on multiple medicines at home and here -in addition to usual medicines is getting p.r.n. doses of Valium here for spasm, no help with anxiety # left greater trochanteric bursitis, moderate severity # chronic back pain syndrome # chronic narcotic dependency with daily use of prescribed medicine at moderate doses, receiving notably higher doses here # ? Migraine, ? Stated history of migraine with stroke syndrome The patient's was with me at the bedside today for all of my visit with the patient and my conversations with the patient. I did also have some discussion with the patient's outside of the room when the patient was not with us as he had several questions and concerns for me. All through the day yesterday the patient has had her current drawn shot and lights turned off. Today we have asked her to leave the current troponin lights on and she has been willing to do so. Today she is up walking notably more in the vitale with a walker. She has again been able to stand at the sink to do her toiletries and is able to Don some of her own clothing. Is able to get to the commode on her own. Nurses did find in the room some tablets of medication, several of which artery identified as oxycodone which she appears to have brought from home. These have been removed from her room and placed in the locker in the pharmacy. Reviewing the patient is very difficult tell how much of this medicine she was taking in addition to what she was getting here. The patient again has difficulty in terms of pain assessment I believe. Despite the fact that yesterday and the prior day she told me she was noticing less pain than the day before, today she tells me that for each of the last 3 days her pain has gotten remarkably worse than the day before. She does admit that she was up walking faster and farther today, however she tells me that "I almost did not make it back to my room and they had to literally carry me", when in fact I observed her up walking for that episode with the therapist and she was walking readily independently on her own down the hallway back into her room over to her bed. While doing so she was surely talking to her sons who were in the room. She did not appear to be having difficulty beyond some discomfort. The patient today complains of a different pain than I have heard from her so far, this being focal pain over the left greater trochanter. This pain in the examination are consistent with trochanteric bursitis. She again raises today with me the topic of whether she would be discharged to home or to a nursing facility. She is very upset by this conversation. I was not aware until last evening that there was any discussion of having her go to a nursing facility. As I have reviewed today with our case maker and with her nurses, as best I can tell it has been the patient herself who has been raising the question, and in fact stating very strongly that she feels she needs to go to a nursing facility. This was certainly how she described things to me last night. Reviewing the returned case inspector notes and nursing notes I am unable to find a conversation where we have recommended to her that she go to a nursing facility. Today we have discussed with her that we do not feel she has need to be in a nursing facility and would not recommend her going to a nursing facility at this time. She does need ongoing physical therapy rehabilitation, and we can decide whether she is able to leave the home to go for therapy in the clinic or have home therapy. However she certainly does not have need to be in a snf facility at this time. Her discusses with me that she has not been coping well at home, and has been closing herself into darkened rooms at home during the daytime frequently. I believe that we will need to have our mental health assess her do a consultation tomorrow and make sure that are plans for managing her anxiety issues seem reasonable and that we arrange for appropriate follow-up for her in the outpatient setting. We have discussed with the patient today and I have discussed with her that her habit of closing herself and darkened room during the daytime is a counterproductive measure given her status. I believe we need to find ways to help her engage instead of having her disengaged. Her did mention to our staff that his had told her that she might need to have surgery, though she has been told repeatedly by 4 different practitioners that we have not found anything treatable by surgery or injection at the spine or back area. I reviewed this with her PLANS: * Change her NSAIDs to scheduled instead of p.r.n. * Continue increased gabapentin dose * I will do a lidocaine/steroid injection of her greater trochanter bursa tomorrow at the bedside * Will trying get touch with her primary care physician and her pain management physician on Saturday morning * Continue physical occupational therapy * Ongoing discussion with case management and therapists about our discharge planning ideas in efforts * Mental health assessment tomorrow for her anxiety and her fears Will have to be very careful to not stir up her anxiety while we simultaneously appropriately and successfully navigate her through this episode of pain without having her end up on higher doses of ongoing narcotic medicine, or having trouble successfully dealing with her issues at home what ever they involve. 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, my review: Exam: alert oriented, moderately anxious at present I have observed her up and moving about quite a bit better and hallway, still using walker but walking fairly well Today she is sitting up lying down turning [id number] moving around in the bed quite a bit during my visit with her, seemingly without any difficulty resps not labored lungs clear BSs heart regular abd soft nondistended nontender, bowel sounds present On examination of her right and left hip, there is abxo-or-[id number] tenderness over the left greater trochanteric bursa but not on the right, consistent with her symptoms iv site ok Objective: Vital Signs Temp Pulse Resp BP Pulse Ox 37.3 C 84 16 112/62 95 04/27/18 15:13 04/27/18 15:13 04/27/18 15:13 04/27/18 15:13 04/27/18 15:13 Laboratory Results 04/24/18 04:20 04/26/18 04/27/18 04/28/18 06:59 06:59 06:59 Intake Total 1400 850 400 Balance 1400 850 400 - Time Spent With Patient Time Spent with Patient: greater than 35 minutes Time Spent with Patient: Greater than 35 minutes spent on this patients care, greater than 50% of time spent counseling, educating, and coordinating care regarding the above mentioned plan. ICD10 Worksheet Patient Problems: Problems Problem Status Onset Intractable low back pain Acute Acute exacerbation of chronic low back pain Acute Herniation of intervertebral disc between L4 and L5 Acute Intractable neuropathic pain of lumbosacral origin Acute
[2018-04-27] MEDS: TOPIRAMATE 100 MG TAB PO SCH (20:42)
[2018-04-27] MEDS: QUEtiapine FUMARATE 100 MG TAB PO SCH (20:44)
[2018-04-27] MEDS: ESCITALOPRAM OXALATE 10 MG TAB PO SCH (20:45)
[2018-04-27] MEDS: PATCH REMOVAL 1 EA PATCH TD SCH (20:49)
[2018-04-27] MEDS: ACET/CAFFEINE/BUTA FIORICET 1 EACH TAB PO PRN (21:24)
[2018-04-27] MEDS: ZOLPIDEM TARTRATE 5 MG TAB PO PRN (22:19)
[2018-04-28] MEDS: HYDROmorphONE/DILAUDID 2 MG TAB PO PRN ×5 (02:19→22:31)
[2018-04-28] MEDS: DIAZEPAM 5 MG TAB PO PRN ×4 (02:19→18:18)
[2018-04-28] MEDS: oxyCODONE IR 15 MG TAB PO SCH ×4 (06:26→20:08)
[2018-04-28] MEDS: LIDOCAINE 4%/MENTHOL 1% PATCH TD SCH (08:13)
[2018-04-28] MEDS: SENNOSIDES/DOCUSATE SODIUM TAB PO SCH ×2 (08:15→20:08)
[2018-04-28] MEDS: NAPROXEN SODIUM 220 MG TAB PO SCH ×3 (08:16→22:30)
[2018-04-28] MEDS: ENOXAPARIN 40 MG/0.4 ML SYR SC SCH (08:16)
[2018-04-28] MEDS: METHOCARBAMOL 750 MG TAB PO SCH ×3 (08:17→22:31)
[2018-04-28] MEDS: MULTIVITAMINS 1 EACH TAB PO SCH (08:17)
[2018-04-28] MEDS: GABAPENTIN 300 MG CAP PO SCH ×2 (08:17→20:08)
[2018-04-28] MEDS: morphINE SR 15 MG TAB PO SCH ×2 (08:17→20:09)
[2018-04-28] MEDS: DICYCLOMINE 20 MG TAB PO PRN (13:05)
[2018-04-28] MEDS ORDERED: LIDOCAINE 2% 5 ML SDV IF ONE (14:19)
[2018-04-28] MEDS ORDERED: BETAMETHASONE IM SYRINGE IM ONE (14:20)
[2018-04-28] MEDS: ACET/CAFFEINE/BUTA FIORICET 1 EACH TAB PO PRN (14:51)
--- NOTE | 2018-04-28 17:23 | HOSPPROG ---
Hospitalist Progress Note Assessment/Plan: DIAGNOSES: # acute on chronic low back pain - past hx of L4/5 L5/S1 laminectomy and cauda equina syndrome -currently no clinical or radiologic signs of neural impingement, fx, or other indication for injection or surgery # severe anxiety, longstanding chronic anxiety disorder along with other mental health issues, on multiple medicines at home and here -in addition to usual medicines is getting p.r.n. doses of Valium here for spasm, no help with anxiety so far # left greater trochanteric bursitis, moderate severity # chronic back pain syndrome # chronic narcotic dependency with daily use of prescribed medicine at moderate doses, receiving notably higher doses here # ? Migraine, pt states history of migraine with stroke syndromes She is upset that I have decreased her narcotic dosing here today. She worked with staff once to ge out of bed and walked short distance. She declined to work with physical therapist at all today. She has complied with recommendation that she have lights on and shades open during day today. However she still insists that her pain is getting rapidly worse, having stated yesterday that it was 10/10 and states today it is worse than that. Again primarily diffuse lumbar pain, has still the L greater troch bursitis pain. She does state today that her lumbar pain is worse whenever upright. Flower Antonio (mental health) met with her today to review her issues, treatment, possible plans. The patient declined to engage in any discussion with Ms Alvarez about anxiety or any other mental health issues. The patient had told me 2 days ago that she was actively engaged with a psychologist, but Ms Alvarez was able to learn today that the patient has not seen that therapist in over 1 year. PLANS: * I have ordered a back brace for her to see if this will be of any help with upright positions * continue PT OT, encouraged pt to engage with these therapies * continue current doses of NSAID, narcotic, muscle relaxor * Continue increased gabapentin dose * Continue physical occupational therapy * Ongoing discussion with case management and therapists about our discharge planning ideas in efforts * will continue to discuss her care with Flower Alvarez Seen by me today on hospitals rounds as well as multidisciplinary rounds SUBJECTIVE: ongoing lumbar pain, states worse with upright posture states she feels great difficulty standing or walking still w same gr troch bursitis pain on L OBJECTIVE Vitals reviewed: 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, my review: Exam: alert oriented, somewhat less anxious today but it is still severe resps not labored lungs clear BSs heart regular abd soft nondistended nontender, bowel sounds present tender over L greater trochanter with no visible or palpable abnormality iv site ok Objective: Vital Signs Temp Pulse Resp BP Pulse Ox 36.8 C 114 H 16 126/89 H 97 04/28/18 08:00 04/28/18 08:00 04/28/18 08:00 04/28/18 08:00 04/28/18 08:00 Laboratory Results 04/24/18 04:20 04/27/18 04/28/18 04/29/18 06:59 06:59 06:59 Intake Total 606 793 5227 Balance 285 566 8051 - Time Spent With Patient Time Spent with Patient: greater than 35 minutes Time Spent with Patient: Greater than 35 minutes spent on this patients care, greater than 50% of time spent counseling, educating, and coordinating care regarding the above mentioned plan. ICD10 Worksheet Patient Problems: Problems Problem Status Onset Intractable low back pain Acute Acute exacerbation of chronic low back pain Acute Herniation of intervertebral disc between L4 and L5 Acute Intractable neuropathic pain of lumbosacral origin Acute
[2018-04-28] MEDS: METOCLOPRAMIDE 10 MG/2 ML VIAL IVP PRN (17:52)
[2018-04-28] MEDS: ESCITALOPRAM OXALATE 10 MG TAB PO SCH (20:07)
[2018-04-28] MEDS: QUEtiapine FUMARATE 100 MG TAB PO SCH (20:08)
[2018-04-28] MEDS: TOPIRAMATE 100 MG TAB PO SCH (20:08)
[2018-04-28] MEDS: PATCH REMOVAL 1 EA PATCH TD SCH (20:13)
[2018-04-28] MEDS: ZOLPIDEM TARTRATE 5 MG TAB PO PRN (22:30)
[2018-04-29] MEDS: DIAZEPAM 5 MG TAB PO PRN ×4 (02:28→20:51)
[2018-04-29] MEDS: HYDROmorphONE/DILAUDID 2 MG TAB PO PRN ×6 (02:31→22:31)
[2018-04-29] MEDS: oxyCODONE IR 15 MG TAB PO SCH ×4 (05:03→20:51)
[2018-04-29] MEDS: SENNOSIDES/DOCUSATE SODIUM TAB PO SCH ×2 (08:45→21:04)
[2018-04-29] MEDS: METHOCARBAMOL 750 MG TAB PO SCH ×3 (08:46→20:51)
[2018-04-29] MEDS: GABAPENTIN 300 MG CAP PO SCH ×2 (08:46→20:51)
[2018-04-29] MEDS: MULTIVITAMINS 1 EACH TAB PO SCH (08:48)
[2018-04-29] MEDS: morphINE SR 15 MG TAB PO SCH ×2 (08:48→20:51)
[2018-04-29] MEDS: NAPROXEN SODIUM 220 MG TAB PO SCH ×3 (08:48→20:50)
[2018-04-29] MEDS: LIDOCAINE 4%/MENTHOL 1% PATCH TD SCH (08:49)
[2018-04-29] MEDS: ENOXAPARIN 40 MG/0.4 ML SYR SC SCH (08:49)
[2018-04-29] MEDS: ACET/CAFFEINE/BUTA FIORICET 1 EACH TAB PO PRN (12:00)
--- NOTE | 2018-04-29 15:39 | ASMTCMCOM ---
CM Note CM Note Notes: Plan of care reviewed in rounds. 42 year old female with back pain. Appreciate Flower Alvarez's insight and recommendations regarding assisting patient with her care needs. Patient is readily open to chatting this pm. She states she is appreciative of care and concern from Flower and this CM. She is chatting about her sons and their sports participation. She also commented that boys have changed her life. She commented that she has encased herself in her grief today acknowledging how her situation has changed. She still needs to speak with her to ask if he might be able to meet with Flower tomorrow. CM to follow. Plan: TBD, Likely home with [facility] Date Signed: 04/29/2018 03:38 PM Electronically Signed By:Twila Young RN
--- NOTE | 2018-04-29 18:07 | HOSPPROG ---
Hospitalist Progress Note Assessment/Plan: DIAGNOSES: # acute on chronic low back pain - past hx of L4/5 L5/S1 laminectomy and cauda equina syndrome -currently no clinical or radiologic signs of neural impingement, fx, or other indication for injection or surgery # severe anxiety, longstanding chronic anxiety disorder along with other mental health issues, on multiple medicines at home and here -in addition to usual medicines is getting p.r.n. doses of Valium here for spasm, no help with anxiety so far # left greater trochanteric bursitis, moderate severity # chronic back pain syndrome # chronic narcotic dependency with daily use of prescribed medicine at moderate doses, receiving notably higher doses here # ? Migraine, pt states history of migraine with stroke syndromes Again today the patient states that the pain is dramatically worse than yesterday though she is up and moving with PT as easily she did yesterday. I did watch her up with PT today. There is no reason the patient's pain should actually be increasing that I can see at this time. I had long discussions with the patient's today and also with Flower Alvarez. This patient has some underlying issues that are interfering with her ability to move forward in a productive fashion, and is engaging in ongoing fashion in counterproductive activities regarding both her back issues and her mental health issues. Flower Alvarez and I felt that would be good for her and the patient to meet with her altogether and review things to see if we can find ways to get the patient to engage better in more productive fashion to deal with all these issues. I am not sure the patient will be willing to engage in this way. I reviewed all this with the and he is very willing to do this. Or still waiting for Poultry Trimmer to come to try and either reset her old brace or set her up with a new brace to see if that helps her tolerate being in upright posture better. It is unclear to me why but has been recommended to her in the past that she have EMG testing and this was mentioned in our neurosurgery note when they assessed her in the ER. I do not think we can do EMG testing here in the hospital but I will inquire as to that and inquire with the neurosurgeons as to what and particularly we would be looking for. PLANS: * I have ordered a back brace for her to see if this will be of any help with upright positions * continue PT OT, encouraged pt to engage with these therapies * continue current doses of NSAID, muscle relaxor, Lidoderm * At this time will stop p.r.n. IV Dilaudid which she uses 1-3 times daily and increase available p.o. Instead * Will further increase gabapentin dose to 600 mg twice daily today * Continue physical occupational therapy * Ongoing discussion with case management and therapists about our discharge planning ideas in efforts * will continue to discuss her care with Flower Alvarez Seen by me today on hospitals rounds as well as multidisciplinary rounds I also met with the today and had extensive discussion with him SUBJECTIVE: ongoing lumbar pain, states worse with upright posture states she feels great difficulty standing or walking Left trochanteric bursitis pain better after yesterday's injection OBJECTIVE Vitals reviewed: 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, 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: Exam: alert oriented, somewhat less anxious today but it is still severe resps not labored lungs clear BSs heart regular abd soft nondistended nontender, bowel sounds present tender over L greater trochanter with no visible or palpable abnormality iv site ok Objective: Vital Signs Temp Pulse Resp BP Pulse Ox 36.7 C 89 18 105/59 L 94 04/29/18 07:25 04/29/18 15:24 04/29/18 15:24 04/29/18 15:24 04/29/18 15:24 Laboratory Results 04/24/18 04:20 04/28/18 04/29/18 04/30/18 06:59 06:59 06:59 Intake Total 700 2650 Balance 700 2650 - Time Spent With Patient Time Spent with Patient: greater than 35 minutes Time Spent with Patient: Greater than 35 minutes spent on this patients care, greater than 50% of time spent counseling, educating, and coordinating care regarding the above mentioned plan. ICD10 Worksheet Patient Problems: Problems Problem Status Onset Intractable low back pain Acute Acute exacerbation of chronic low back pain Acute Herniation of intervertebral disc between L4 and L5 Acute Intractable neuropathic pain of lumbosacral origin Acute
[2018-04-29] MEDS: ESCITALOPRAM OXALATE 10 MG TAB PO SCH (20:50)
[2018-04-29] MEDS: METOCLOPRAMIDE 10 MG/2 ML VIAL IVP PRN (20:52)
[2018-04-29] MEDS: QUEtiapine FUMARATE 100 MG TAB PO SCH (20:52)
[2018-04-29] MEDS: TOPIRAMATE 100 MG TAB PO SCH (21:04)
[2018-04-29] MEDS: PATCH REMOVAL 1 EA PATCH TD SCH (21:09)
[2018-04-29] MEDS: DICYCLOMINE 20 MG TAB PO PRN (22:31)
[2018-04-29] MEDS: ZOLPIDEM TARTRATE 5 MG TAB PO PRN (22:31)
[2018-04-30] MEDS: HYDROmorphONE/DILAUDID 2 MG TAB PO PRN ×6 (02:19→22:26)
[2018-04-30] MEDS: DIAZEPAM 5 MG TAB PO PRN ×4 (02:20→20:37)
[2018-04-30] MEDS: oxyCODONE IR 15 MG TAB PO SCH ×4 (06:27→20:37)
[2018-04-30] MEDS: SENNOSIDES/DOCUSATE SODIUM TAB PO SCH ×2 (08:21→20:36)
[2018-04-30] MEDS: MULTIVITAMINS 1 EACH TAB PO SCH (08:21)
[2018-04-30] MEDS: morphINE SR 15 MG TAB PO SCH ×2 (08:21→20:37)
[2018-04-30] MEDS: METHOCARBAMOL 750 MG TAB PO SCH ×3 (08:22→20:37)
[2018-04-30] MEDS: NAPROXEN SODIUM 220 MG TAB PO SCH ×3 (08:22→20:36)
[2018-04-30] MEDS: DICYCLOMINE 20 MG TAB PO PRN (08:24)
[2018-04-30] MEDS: GABAPENTIN 300 MG CAP PO SCH ×2 (08:28→20:38)
[2018-04-30] MEDS: ENOXAPARIN 40 MG/0.4 ML SYR SC SCH (08:29)
[2018-04-30] MEDS ORDERED: KETAMINE IVP ONE (15:45)
--- NOTE | 2018-04-30 16:37 | ASMTCMCOM ---
CM Note CM Note Notes: Patient plan of care reviewed in rounds. Ketamine ordered for her back pain. Patient and her Blanco met with Flower Alvarez to discuss treatment plans and goals. Spoke with Rosalinda Mars at [facility]" . They are able to help this family as will be staying home to assist with childcare and will also be working. Hopefully patient will be able to discharge tomorrow. Will need C PT and referral placed via [email or web address]. Application to [facility] also faxed. CM available should other needs arise, Plan: Home with HHC and [facility]" support. Date Signed: 04/30/2018 04:37 PM Electronically Signed By:Twila Young RN
[2018-04-30] MEDS: LIDOCAINE 4%/MENTHOL 1% PATCH TD SCH (16:52)
--- NOTE | 2018-04-30 17:57 | HOSPPROG ---
Hospitalist Progress Note Assessment/Plan: * Acute on chronic low back pain -MRI unremarkable - neurosurgery signed off -IV ketamine x 1 - then she feels she can go home in am -outpatient EMG * Possible L4/L5 radiculopathy -offered THOMAS with IR and she prefers to follow-up for outpatient injection with chronic pain MD -continue Gabapentin * h/o non-organic neuro exam - reviewed previous neurology consultation during previous stay -? malingering vs. secondary gain for narcotics * Anxiety -outpatient mental health follow-up -she understand that no prescription for additional Valium to be given at discharge * Chronic narcotic dependency -she will make appointment with her chronic pain MD within 24 hours of hospital discharge * h/o previous laminectomy with cauda equina syndrome -? previous nerve damage from this event * Urine/fecal incontinence -not witnessed by RN -negative MRI L-spine reassuring -despite reassurance that there is no current evidence for cauda equina syndrome she continue to talk about this disorder in present tense, like it is an ongoing issue for her -check bladder scan Subjective: c/o new urine and fecal incontinence. New numbness in groin. Severe back pain feels like bone on bone. Pain radiating down outer part of left leg. Objective: Vital Signs Temp Pulse Resp BP Pulse Ox 36.4 C 60 16 108/48 L 95 04/30/18 05:59 04/30/18 16:00 04/30/18 16:00 04/30/18 16:00 04/30/18 16:00 Laboratory Results 04/24/18 04:20 04/29/18 04/30/18 05/01/18 05:59 05:59 05:59 Intake Total 2650 200 Balance 2650 200 old chart reviewed - last hospitalization her LE weakness was determined by neurology to be NON-ORGANIC, very similar presentation to this time MRI L-spine - mild disk herniation, mild/moderate foraminal narrowing on wrong side with her clinical pain - Physical Exam Constitutional: no apparent distress, appears nourished, not in pain Cardiovascular: regular rate and rhythym, no murmur, rub, or gallop Respiratory: no respiratory distress, no rales or rhonchi, clear to auscultation Gastrointestinal: normoactive bowel sounds, soft, non-tender abdomen, no palpable masses Skin: no rashes or abrasions, no fluctuance, no induration Neurologic: AAOx3, CN II-XII Intact, No sensation intact bilaterally (numbness in groin area to subjective touch'), No asterixes, No facial droop Psychiatric: interacting appropriately, not anxious, not encephalopathic, thought process linear ICD10 Worksheet Patient Problems: Problems Problem Status Onset Herniation of intervertebral disc between L4 and L5 Acute Acute exacerbation of chronic low back pain Acute Intractable neuropathic pain of lumbosacral origin Acute Intractable low back pain Acute
[2018-04-30] MEDS: ESCITALOPRAM OXALATE 10 MG TAB PO SCH (20:36)
[2018-04-30] MEDS: QUEtiapine FUMARATE 100 MG TAB PO SCH (20:37)
[2018-04-30] MEDS: TOPIRAMATE 100 MG TAB PO SCH (20:37)
[2018-04-30] MEDS: PATCH REMOVAL 1 EA PATCH TD SCH (20:42)
[2018-04-30] MEDS: ZOLPIDEM TARTRATE 5 MG TAB PO PRN (22:27)
[2018-05-01] MEDS: HYDROmorphONE/DILAUDID 2 MG TAB PO PRN ×3 (02:27→11:24)
[2018-05-01] MEDS: DIAZEPAM 5 MG TAB PO PRN ×2 (02:27→11:24)
[2018-05-01] MEDS: oxyCODONE IR 15 MG TAB PO SCH ×2 (06:32→13:26)
[2018-05-01] MEDS: GABAPENTIN 300 MG CAP PO SCH (08:52)
[2018-05-01] MEDS: MULTIVITAMINS 1 EACH TAB PO SCH (08:52)
[2018-05-01] MEDS: ENOXAPARIN 40 MG/0.4 ML SYR SC SCH (08:52)
[2018-05-01] MEDS: morphINE SR 15 MG TAB PO SCH (08:53)
[2018-05-01] MEDS: NAPROXEN SODIUM 220 MG TAB PO SCH (08:53)
[2018-05-01] MEDS: METHOCARBAMOL 750 MG TAB PO SCH (08:53)
[2018-05-01] MEDS: SENNOSIDES/DOCUSATE SODIUM TAB PO SCH (08:53)
[2018-05-01] MEDS: LIDOCAINE 4%/MENTHOL 1% PATCH TD SCH (08:54)
[2018-05-01 08:59] VITALS: BP 109/61
[2018-05-01] MEDS ORDERED: KETAMINE IVP ONE (09:26)
--- NOTE | 2018-05-01 11:06 | PDIAF ---
- Diagnosis Diagnosis: back pain Code Status: Full Code - Medication Management Discharge Medications: electronically signed and located in the Home Medication List. - Orders Services needed: Home Care, Physical Therapy, Occupational Therapy Home Care Face to Face: I certify that this patient was under my care and that I had the required [id number] encounter meeting the encounter requirements on the discharge day. My findings support the fact that the patient is homebound as defined in Home Care Face to Face Continued: CMS Chapter 7 Medicare Benefits Manual 30.1.1 , The condition of the patient is such that there exists a normal inability to leave home and consequently, leaving home would require a considerable and taxing effort. Isolation Type: None Diet Recommendation: no restrictions on diet Additional Instructions: follow up with Dr Franco in 2-4 weeks, call [phone] to schedule appointment patient should complete outpatient EMG (already set up from prior clinic visit) prior to follow up appointment. - Follow Up Care Current Providers and Referrals: NONE *PRIMARY CARE P,. [Primary Care Provider] - As per Instructions
--- NOTE | 2018-05-01 18:01 | GDS ---
[f rep st] DISCHARGE SUMMARY DISCHARGE DIAGNOSES: 1. Acute musculoskeletal back pain. Suspect muscle spasm. 2. Possible L4-L5 radiculopathy. 3. History of nonorganic neurologic deficits, question secondary gain. 4. Anxiety. 5. Chronic narcotic dependency. 6. History of previous laminectomy with cauda equina syndrome. HISTORY: The patient is a 42-year-old female, who suffered a previous cauda equina syndrome with a r uptured disk while she was . Since then, she has had ongoing back pain issues, although foll owup MRIs have all been unremarkable. She presented again with severe low back pain. She was seen b y Neurosurgery and they did not have any current recommendations other than an outpatient EMG. She m ay have an L4-L5 radiculopathy, but Neurosurgery did not feel she would benefit from an epidural ster oid injection at this time. She does have outpatient spine physicians who do those injections and peyton delacruz would like to pursue that possibly with them rather than doing it here. She was started on gabapen tin with a good result. She also does well with IV ketamine, which she received multiple times durin g this hospitalization. She will arrange for outpatient EMG. She is on a high dose of chronic narco tics and required additional Dilaudid dosing during this hospitalization. [facility]. She made an appointment for followup with her chronic pain doctor t omorrow. She will be given only 24 hours of p.r.n. oral Dilaudid to get her until that followup visi t. The patient has a history of strange neurologic symptoms that do not have any physiologic pattern. O n previous admission, Dr. Alvarado saw her from Neurology and declared her neuro exam nonorganic. Dur ing this hospitalization, she also had unusual neurologic symptoms, such as reported urine and fecal incontinence despite having a normal MRI, weakness and inability to walk, inability to sit up or twyla d upright, leg numbness. She appears very anxious. We did have Flower Alvarez see her in consultation. I wonder if there may be an element of conversion disorder. At the time of discharge, these issues were relatively quiescent and she was able ambulate and discharge home with home health. She did hav e a previous admission 1 year ago. It was very similar to this one. DISCHARGE MEDICATIONS: Please see computerized record for full detailed list. New medications: 1. Gabapentin 600 mg p.o. twice daily. 2. Naproxen 220 mg p.o. three times daily. 3. Dilaudid 2 to 4 mg p.o. q.4 hours as needed; only 10 tablets were dispensed. DISCHARGE INSTRUCTIONS: 1. Outpatient EMG. 2. Follow up with Dr. Brian Maharaj. 3. Follow up with your chronic pain physicians within 24 hours as recommended. 4. Greater than 30 minutes' time spent arranging this discharge. The patient was seen and examined by anita delacruz on the day of discharge. /[id number]/MODL
--- NOTE | 2018-05-05 13:33 | ASMTLACE ---
LACE Length of stay for Answers: 7-13 days current admission Comorbidities - select Answers: Opioid dependence all that apply / Chronic pain # of Emergency department Answers: 3-4 visits in the last 6 months Social determinants Answers: Mental health diagnosis (anxiety, depression, pers onality disorders, etc.) Lack of community resources and/or lack of social support (no pcp, lives alone, transportation, lata d) Score: 19 Date Signed: 05/05/2018 01:32 PM Electronically Signed By:MARTHA Ayers
--- NOTE | 2018-05-05 13:36 | ASDISCHSUM ---
Discharge Information Plan Status:Home with Home Health Medically Cleared to Leave: Discharge Date:05/01/2018 03:10 PM CM D/C Disposition:Home Health Service ADT D/C Disposition:Home, Routine, Self-Care Projected Discharge Date:04/28/2018 11:00 AM Transportation at D/C: Discharge Delay Reason: Follow-Up Date:04/28/2018 11:00 AM Discharge Slot: Final Diagnosis: Placement Information Referral Type:*Detention/SNF Referral ID:[id number] Provider Name: Address 1: Phone Number: Address 2: Fax Number: City: Selection Factors: State: Referral Type:*Home Health Care Services Referral ID:[id number] Provider Name:[facility] ([facility]) Address [address] Address 2: City:[place] Selection Factors: State:[place] Patient Contact Information Contact Name:ELLE Relationship: Address:[address] [address] Work Phone: City:[place] Alternate Phone: State/Zip Code:[place] [address] Email: Financial Information Financial Class:HMO and PPO Plans Primary Plan Desc:[employer] Primary Plan Number:[id number] Secondary Plan Desc: Secondary Plan Number: Assessment Information LACE LACE Length of stay for Answers: 7-13 days current admission Comorbidities - select Answers: Opioid dependence all that apply / Chronic pain # of Emergency department Answers: 3-4 visits in the last 6 months Social determinants Answers: Mental health diagnosis (anxiety, depression, pers onality disorders, etc.) Lack of community resources and/or lack of social support (no pcp, lives alone, transportation, lata d) Score: 19 Date Signed: 05/05/2018 01:32 PM Electronically Signed By:MARTHA Ayers [facility] Progress Note CM Note CM Note Notes: Pt is a 42 y/o female admitted for lower back pain. Pt has a hx of chronic low back pain followed by [facility] in the [place] pain clinic. Therapies have been ordered and awaiting recommendations. Needs are TBD at this time. CM to follow. Plan: TBD Date Signed: 04/23/2018 09:13 AM Electronically Signed By:MARTHA Selby [facility] CM Progress Note CM Note CM Note Notes: CM met with PT following her evaluation with pt. PT recommending HH PT vs SNF. Pt can be "safe" at home, but it is unclear whether family can meet her needs or whether she needs to have her pain under increased control prior to returning home. CM will speak to family and pt today. D/C Plan: HH PT vs SNF Date Signed: 04/25/2018 09:34 AM Electronically Signed By:Lainey Obrien [facility] CM Progress Note CM Note CM Note Notes: CM spoke with pt and discussed PT's recommendations for HHC vs SNF.. Pt believes that when she does go home she will be expected to resume all of her former responsibilities and will not be safe if she hasn't gone through additional rehab and is feeling better. She is considering rehab and asked if there was a place close to home, which is in [place]. She expressed concerns over the finances; a referral will be sent in to rehab facilities with an inquiry re co-pay. Pt became quite tearful, reported being scared and overall appeared overwhelmed emotionally, "SNF are where people go to ". She was encouraged to process this recommendation today and to discuss it with her . Referrals sent to SNF/Rehab. D/C Plan: [facility] vs SNF/Rehab Date Signed: 04/25/2018 02:13 PM Electronically Signed By:Lainey Obrien [facility] Progress Note CM Note CM Note Notes: Referrals sent to [place] and [facility] reported pt's financial portion as $100 a day with a required $700 deposit, awaiting [employer]. Gave pt info on both facilities. She will be showing them to her ruba. Longer discussion with pt suggests that there may be other/emotional issues effecting her decision making. D/C Plan: vs SNF/Rehab Date Signed: 04/25/2018 05:01 PM Electronically Signed By:Lainey Obrien [facility] Progress Note CM Note CM Note Notes: Met with patient. Gabriella is emotional. 42 year old female with intractable back pain. She feels that physically she can't go home and resume care of house and children let alone do her own ADL's unassisted. She has asked for referrals to [facility], [facility] as well as [facility]. She has 3 children at home ages 4, 10 and 13. Her is her sole support. She is tearful as she recounts losing her mon just last year. Her brother is homeless and there is no other support besides the friends through soccer associations. I informed her about [facility] She is interested and would like to proceed with applications process. Referral sent via [employer]. Will fax form to "[facility]". Plan: To SNF when medically stable. Date Signed: 04/26/2018 02:17 PM Electronically Signed By:Twila Young RN [facility] Progress Note CM Note CM Note Notes: Patient plan of care reviewed in am rounds. 42 year old female with chronic back pain found to have her own prescription bottles in her room in addition to staff administered medications. She wishes to go to SNF due to pain but neurosurgery has signed off for now. Per physical therapy, she has needs but likely bettered served with home health care. Hopefully Flower Alvarez can see her tomorrow to assess for depression that may be in need of treatment. CM to follow. Plan: Home with [facility] Date Signed: 04/27/2018 01:37 PM Electronically Signed By:Twila Young RN [facility] CM Progress Note CM Note CM Note Notes: Plan of care reviewed in rounds. 42 year old female with back pain. Appreciate Flower Alvarez's insight and recommendations regarding assisting patient with her care needs. Patient is readily open to chatting this pm. She states she is appreciative of care and concern from Flower and this CM. She is chatting about her sons and their sports participation. She also commented that boys have changed her life. She commented that she has encased herself in her grief today acknowledging how her situation has changed. She still needs to speak with her to ask if he might be able to meet with Flower tomorrow. CM to follow. Plan: TBD, Likely home with [facility] Date Signed: 04/29/2018 03:38 PM Electronically Signed By:Twila Young RN [facility] CM Progress Note CM Note CM Note Notes: Patient plan of care reviewed in rounds. Ketamine ordered for her back pain. Patient and her Blanco met with Flower Alvarez to discuss treatment plans and goals. Spoke with Rosalinda Mars at [facility]" . They are able to help this family as will be staying home to assist with childcare and will also be working. Hopefully patient will be able to discharge tomorrow. Will need [facility] PT and referral placed via [employer]. Application to [facility] also faxed. CM available should other needs arise, Plan: Home with [facility] and [facility]" support. Date Signed: 04/30/2018 04:37 PM Electronically Signed By:Twila Young RN Case Management Discharge Plan Note Case Management Discharge Discharge Order Complete? Answers: Yes Patient to Obtain Answers: via [facility] Medications Transportation Arranged Answers: Family/Friends Faxed Final Orders Answers: Yes Agency/Facility Transfer Answers: Yes Report Printed & Faxed to Receiving Agency Family Notified Answers: Yes Discharge Comments Notes: Note From 05/01/18 CM discussed discharge plan with pt. Agreeable with linkage with [facility]. CM submit information to [facility] re: discharge. CM provided phone number for [facility]. No other concerns noted at this time. Family to transport. Date Signed: 05/05/2018 01:35 PM Electronically Signed By:MARTHA Ayers Intervention Information
== END 2018-05-01 15:10 | disposition home health service (06) | DRG 552 ==
LOC: F1N 22:10 → OBSVTOIN 04-23 17:10
PROVIDERS: ADMIT Family Medicine; ATTEND Family Medicine
DX: M54.16 Radiculopathy, lumbar region (principal); F11.20 Opioid dependence, uncomplicated; M62.830 Muscle spasm of back; R32 Unspecified urinary incontinence; R15.9 Full incontinence of feces; G43.909 Migraine, unspecified, not intractable, without status migrainosus; F41.9 Anxiety disorder, unspecified
CPT/HCPCS: 96374; 97116-GP; 97161-GP; 97166-GO; 97535-GO; G0378; J0702; J1170; J1630; J1650; J1885; J2550; J2765; J2920; J3360; J7512